=== PATIENT | male | born 1940 | race Caucasian/White ===

== ENCOUNTER 2019-11-10 12:50 | Emergency (ER) | payer MEDICARE, OTHER, SELFPAY ==
[2019-11-10 12:58] VITALS: BP 161/93; PULSE 93; RESP 18; TEMP 36.4; O2SAT 98
--- NOTE | 2019-11-10 12:58 | ED_ITS ---
HPI - Recheck/Abnormal Lab/Rx General Chief Complaint: Recheck/Abnormal Lab/Rx Stated Complaint: out of seizure medication/ran out today Time Seen by Provider: 11/10/19 12:57 Source: patient Mode of arrival: Ambulatory Limitations: no limitations History of Present Illness HPI narrative: Patient is a 78-year-old male with history of B12 deficiency and seizure presenting today with out of seizure medication. He supposed to take lamotrigine 150 mg twice a day however there are no refills on his medication and he only took 50 mg of Motrin this morning. He has only had 1 seizure secondary to B12 deficiency that was 6 months ago. He has no symptoms now and feels okay. MD complaint: medication refill request Related Data Previous Rx's Medication Instructions Recorded lamotrigine [Lamictal] 150 mg PO BID #30 tab 11/10/19 Allergies Allergy/AdvReac Type Severity Reaction Status Date / Time No Known Drug Allergies Allergy Verified 11/25/18 10:41 Review of Systems Review of Systems Narrative: GENERAL: Denies chills,fever HEENT: Denies throat pain RESPIRATORY: Denies dyspnea, cough, wheezing CARDIOVASCULAR: Denies chest pain, palpitations GASTROINTESTINAL: Denies nausea, vomiting MUSCULOSKELETAL: Denies extremity pain, injury SKIN: No rash, no laceration, no pruritus NEUROLOGIC: See HPI Denies weakness, dizziness, headache, numbness 8 point review of systems is negative except for those stated above and HPI Patient History Medical History B12 deficiency (Acute) Seizure (Acute) Social History Smoking Status: Never smoker Smoking Status: Never smoker Exam Initial Vital Signs Initial Vital Signs: Vital Signs Temperature 97.6 F 11/10/19 12:58 Pulse Rate 93 H 11/10/19 12:58 Respiratory Rate 18 11/10/19 12:58 Blood Pressure 161/93 H 11/10/19 12:58 Pulse Oximetry 98 11/10/19 12:58 GENERAL: Pleasant well-appearing male and in no acute distress. HEENT: Head atraumatic,EOMI, pupils reactive, face symmetric, moist mucous membranes CARDIOVASCULAR: Regular rate and rhythm without murmurs, rubs or gallops. RESPIRATORY: Breath sounds equal bilaterally, no wheezes rales or rhonchi. EXTREMITIES: Normal range of motion, no clubbing or edema. Neurovascularly int act NEUROLOGICAL: Alert and oriented x4.Normal gait and speech. SKIN: Warm, dry, no laceration, no petechiae, no rashes or lesions. Course Orders Ordered: Lamotrigine (Lamictal) 150 mg PO BID Stop: 11/10/19 23:59 Discontinued Medications Lamotrigine (Lamictal) 150 mg PO BID FLACO Last Admin: 11/10/19 13:27 Dose: 150 mg Documented by: HI Lamotrigine (Lamictal) 100 mg PO NOW ONE Stop: 11/10/19 13:09 Last Admin: 11/10/19 13:27 Dose: 100 mg Documented by: HI Vital Signs Vital signs: Vital Signs - 8 hr 11/10/19 12:58 Temperature 97.6 F Pulse Rate 93 H Respiratory Rate 18 Blood Pressure 161/93 H Pulse Oximetry 98 Discharge Plan Departure Patient Disposition: Home Clinical Impression: Seizure, Encounter for medication refill Discharge Date/Time: 11/10/19 13:39 Instructions: DI for Seizure Disorder -- Adult Activity Restrictions/Additional Instructions: *You have been diagnosed with seizure, medication refill *What to do: Talked your neurologist about refilling medication *Continue to take medications as directed lAMOTRIGINE 150 mg twice a day--> [facility] [place] *Follow up with your primary care provider in 2-3 days *Return to ER if you should have any new, worsening or concerning symptoms Prescriptions: New lamotrigine [Lamictal] 150 mg tablet 150 mg PO BID Qty: 30 RF: 0 Referrals: Luis Burris MD [Primary Care Provider] -
[2019-11-10] MEDS: lamoTRIgine 100 MG TABLET PO (13:27)
[2019-11-10] MEDS: lamoTRIgine 100 MG TABLET 150 MG PO (13:27)
== END 2019-11-10 13:39 | disposition home or self-care (01) ==
PROVIDERS: Emergency Provider Emergency Medicine; PCP Internal Medicine
DX: Z76.0 Encounter for issue of repeat prescription (principal)
CPT/HCPCS: 99281

== ENCOUNTER → 2019-12-07 15:45 | Outpatient (CLI) | payer MEDICARE, OTHER, SELFPAY ==
--- NOTE | 2019-12-07 | DI.RAD.S_ITS ---
PROCEDURE: XR KNEE LT 3V INDICATIONS: Pain in left knee TECHNIQUE: 3 views of the knee were acquired. COMPARISON: None. FINDINGS: Bones: No fractures or dislocations. No suspicious bony lesions. Areas of calcification are noted overlying the joint space on frontal view. Mild to moderate medial and mild patellofemoral compartment narrowing. Soft tissues: Mild joint effusion. Calcification is noted along the insertion of the medial collateral ligament. 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 Dictated by: Miryam Christy M.D. on 12/07/2019 at 16:34 Approved by: Miryam Christy M.D. on 12/07/2019 at 16:35
== END ==
PROVIDERS: PCP Internal Medicine; Visit Provider Internal Medicine
DX: M25.562 Pain in left knee (principal); M25.462 Effusion, left knee
CPT/HCPCS: 73562

== ENCOUNTER → 2021-03-30 19:08 | Outpatient (ROUT) | payer MEDICARE, OTHER, SELFPAY ==
[2021-03-30 19:55] LABS: Add Manual Diff / Slide Review NO; Basophils Absolute Auto 0 /uL (0-100); Basophils Percent Auto 0.4 % (0-2); Eosinophils Absolute Auto 100 /uL (0-450); Hematocrit 40.5 % (41-53); Hemoglobin 13.2 g/dL (13.5-17.5); Lymphocytes Absolute Auto 1600 /uL (1100-4500); Lymphocytes Percent Auto 20.5 % (25-40); Mean Corpuscular HGB Conc 32.7 % (30-36); Mean Corpuscular Hemoglobin 31.2 PG (26-34); Mean Corpuscular Volume 95.6 fL (80-100); Monocytes Absolute Auto 600 /uL (0-900); Monocytes Percent Auto 7.4 % (3-14); Neutrophils Absolute Auto 5400 /uL (1500-7000); Neutrophils Percent Auto 70.7 % (50-75); Platelet Count 90 X10^3/uL (150-400); Red Blood Cell Count 4.24 X10^6/uL (4.5-5.9); Red Cell Distribution Width 15.6 % (11.6-14.8); White Blood Cell Count 7.7 X10^3/uL (4.5-11.0)
[2021-03-30 20:08] LABS: Alanine Aminotransferase 13 IU/L (<50); Albumin Globulin Ratio 1.4 (1.0-2.8); Alkaline Phosphatase 106 U/L (38-126); Aspartate Aminotransferase 23 IU/L (17-59); BUN Creatinine Ratio 26.6 (6-22); Blood Urea Nitrogen 17 mg/dL (9-20); Calcium 8.9 mg/dL (8.4-10.2); Carbon Dioxide 27 mmol/L (22-32); Chloride 102 mmol/L (98-107); Estimated Glomerular Filt Rate > 60.0 mL/min (>60); Globulin 2.8 g/dL (1.7-4.1); Glucose 128 mg/dL (80-110); HEMOLYSIS < 15 (0-50); Sodium 141 mmol/L (137-145); Total Protein 6.8 g/dL (6.3-8.2)
[2021-03-30 20:09] LABS: Potassium 3.5 mmol/L (3.4-5.1)
[2021-03-30 20:34] LABS: TSH w/ Reflex to FT4 2.82 uIU/mL (0.47-4.68)
== END ==
PROVIDERS: PCP Internal Medicine; Visit Provider Internal Medicine
DX: I48.91 Unspecified atrial fibrillation (principal)
CPT/HCPCS: 80053; 84443; 85025

== ENCOUNTER → 2022-04-04 15:05 | Outpatient (CLI) | payer MEDICARE, OTHER, SELFPAY ==
[2022-04-04 17:40] LABS: Alanine Aminotransferase 10 IU/L (<50); Albumin 4.3 g/dL (3.5-5.0); Albumin Globulin Ratio 1.5 (1.0-2.8); Alkaline Phosphatase 89 U/L (38-126); Aspartate Aminotransferase 20 IU/L (17-59); BUN Creatinine Ratio 23.9 (6-22); Bilirubin Total 0.8 mg/dL (0.2-1.3); Blood Urea Nitrogen 16 mg/dL (9-20); Calcium 8.5 mg/dL (8.4-10.2); Carbon Dioxide 31 mmol/L (22-32); Chloride 103 mmol/L (98-107); Cholesterol 131 mg/dL (140-199); Estimated Glomerular Filt Rate > 60 mL/min (>60); Globulin 2.9 g/dL (1.7-4.1); Glucose 118 mg/dL (80-110); HDL Cholesterol 30 mg/dL (40-60); HEMOLYSIS < 15 (0-50); LDL Cholesterol Calculated 79 mg/dL (<100); Potassium 3.3 mmol/L (3.4-5.1); Sodium 140 mmol/L (137-145); Total Protein 7.2 g/dL (6.3-8.2); Triglycerides 108 mg/dL (35-150)
[2022-04-04 17:45] LABS: Hematocrit 37.8 % (41-53); Hemoglobin 12.9 g/dL (13.5-17.5); Mean Corpuscular HGB Conc 34.1 % (30-36); Mean Corpuscular Hemoglobin 33.6 PG (26-34); Mean Corpuscular Volume 98.5 fL (80-100); Platelet Count 117 X10^3/uL (150-400); Red Blood Cell Count 3.84 X10^6/uL (4.5-5.9); Red Cell Distribution Width 15.2 % (11.6-14.8); White Blood Cell Count 6.5 X10^3/uL (4.5-11.0)
[2022-04-04 18:08] LABS: Hemoglobin A1C% w Est Avg Glu 6.6 % (4.0-6.0)
[2022-04-04 18:26] LABS: TSH w/ Reflex to FT4 4.33 uIU/mL (0.47-4.68)
== END ==
PROVIDERS: PCP Internal Medicine; Referring Provider Internal Medicine; Visit Provider Internal Medicine
DX: I10 Essential (primary) hypertension (principal); E11.59 Type 2 diabetes mellitus with other circulatory complications; E78.2 Mixed hyperlipidemia; I48.20 Chronic atrial fibrillation, unspecified
CPT/HCPCS: 36415; 80053; 80061; 83036; 84443; 85027

== ENCOUNTER → 2022-07-18 16:37 | Outpatient (CLI) | payer MEDICARE, OTHER, SELFPAY ==
[2022-07-18 17:42] LABS: Hematocrit 39.9 % (41-53); Hemoglobin 13.9 g/dL (13.5-17.5); Mean Corpuscular HGB Conc 34.9 % (30-36); Mean Corpuscular Hemoglobin 34.2 PG (26-34); Platelet Count 134 X10^3/uL (150-400); Red Blood Cell Count 4.07 X10^6/uL (4.5-5.9); Red Cell Distribution Width 15.3 % (11.6-14.8)
[2022-07-18 18:01] LABS: Hemoglobin A1C% w Est Avg Glu 6.5 % (4.0-6.0)
[2022-07-18 18:03] LABS: Alanine Aminotransferase 11 IU/L (<50); Albumin 4.2 g/dL (3.5-5.0); Albumin Globulin Ratio 1.3 (1.0-2.8); Alkaline Phosphatase 100 U/L (38-126); Aspartate Aminotransferase 20 IU/L (17-59); BUN Creatinine Ratio 23.7 (6-22); Blood Urea Nitrogen 18 mg/dL (9-20); Calcium 8.9 mg/dL (8.4-10.2); Carbon Dioxide 27 mmol/L (22-32); Chloride 103 mmol/L (98-107); Estimated Glomerular Filt Rate > 60 mL/min (>60); Globulin 3.2 g/dL (1.7-4.1); Glucose 123 mg/dL (80-110); HEMOLYSIS < 15 (0-50); Potassium 3.9 mmol/L (3.4-5.1); Sodium 139 mmol/L (137-145); Total Protein 7.4 g/dL (6.3-8.2)
[2022-07-18 18:53] LABS: Vitamin B12 573 pg/mL (239-931)
[2022-07-20 08:08] LABS: Varicella IgG Antibody 665 index (Immune >165)
== END ==
PROVIDERS: PCP Internal Medicine; Referring Provider Internal Medicine; Visit Provider Internal Medicine
DX: Z20.9 Contact with and (suspected) exposure to unspecified communicable disease (principal); E53.8 Deficiency of other specified B group vitamins
CPT/HCPCS: 36415; 80053; 82607; 83036; 85027; 86787

== ENCOUNTER → 2022-10-23 14:29 | Outpatient (CLI) | payer MEDICARE, OTHER, SELFPAY ==
[2022-10-23 16:46] LABS: BUN Creatinine Ratio 17.6 (6-22); Blood Urea Nitrogen 12 mg/dL (9-20); Calcium 8.6 mg/dL (8.4-10.2); Carbon Dioxide 29 mmol/L (22-32); Chloride 99 mmol/L (98-107); Estimated Glomerular Filt Rate > 60 mL/min (>60); Glucose 117 mg/dL (80-110); HEMOLYSIS < 15 (0-50); Potassium 3.2 mmol/L (3.4-5.1); Sodium 140 mmol/L (137-145)
[2022-10-23 16:51] LABS: Hemoglobin A1C% w Est Avg Glu 6.4 % (4.0-6.0)
== END ==
PROVIDERS: PCP Internal Medicine; Referring Provider Internal Medicine; Visit Provider Internal Medicine
DX: E11.59 Type 2 diabetes mellitus with other circulatory complications (principal)
CPT/HCPCS: 36415; 80048; 83036

== ENCOUNTER → 2023-01-22 14:56 | Outpatient (CLI) | payer MEDICARE, OTHER, SELFPAY ==
[2023-01-22 15:10] LABS: Hematocrit 40.2 % (41-53); Hemoglobin 13.7 g/dL (13.5-17.5); Mean Corpuscular HGB Conc 34.2 % (30-36); Mean Corpuscular Hemoglobin 33.9 PG (26-34); Platelet Count 109 X10^3/uL (150-400); Red Blood Cell Count 4.06 X10^6/uL (4.5-5.9); Red Cell Distribution Width 14.9 % (11.6-14.8); White Blood Cell Count 6.1 X10^3/uL (4.5-11.0)
[2023-01-22 15:40] LABS: BUN Creatinine Ratio 22.7 (6-22); Blood Urea Nitrogen 17 mg/dL (9-20); Calcium 8.5 mg/dL (8.4-10.2); Carbon Dioxide 28 mmol/L (22-32); Chloride 104 mmol/L (98-107); Estimated Glomerular Filt Rate > 60 mL/min (>60); Glucose 122 mg/dL (80-110); HEMOLYSIS < 15 (0-50); Sodium 140 mmol/L (137-145)
[2023-01-22 22:59] LABS: Hemoglobin A1C% w Est Avg Glu 6.6 % (4.0-6.0)
== END ==
PROVIDERS: PCP Internal Medicine; Referring Provider Internal Medicine; Visit Provider Internal Medicine
DX: E11.59 Type 2 diabetes mellitus with other circulatory complications (principal); I48.20 Chronic atrial fibrillation, unspecified; I50.22 Chronic systolic (congestive) heart failure; Z79.01 Long term (current) use of anticoagulants
CPT/HCPCS: 36415; 80048; 83036; 85027

== ENCOUNTER → 2023-07-30 16:24 | Outpatient (CLI) | payer MEDICARE, OTHER, SELFPAY ==
[2023-07-30 20:59] LABS: Creatinine Urine Random 101.9 mg/dL
[2023-07-30 21:04] LABS: BUN Creatinine Ratio 25.7 (6-22); Blood Urea Nitrogen 18 mg/dL (9-20); Calcium 8.4 mg/dL (8.4-10.2); Carbon Dioxide 27 mmol/L (22-32); Chloride 101 mmol/L (98-107); Estimated Glomerular Filt Rate > 60 mL/min (>60); Glucose 111 mg/dL (80-110); HEMOLYSIS < 15 (0-50); Potassium 3.5 mmol/L (3.4-5.1); Sodium 139 mmol/L (137-145)
[2023-07-30 21:05] LABS: Microalbumi Creatinin Ratio Ur 111.8 ug/mg CR (<30); Microalbumin Urine Random 11.4 mg/dL (0-1.6)
== END ==
PROVIDERS: PCP Internal Medicine; Referring Provider Internal Medicine; Visit Provider Internal Medicine
DX: E11.59 Type 2 diabetes mellitus with other circulatory complications (principal); I48.20 Chronic atrial fibrillation, unspecified; I10 Essential (primary) hypertension
CPT/HCPCS: 36415; 80048; 82043; 82570; 83036

== ENCOUNTER 2023-11-05 10:20 | Inpatient (IN) | payer MEDICARE, OTHER, SELFPAY ==
[2023-11-05] VITALS (35 sets, daily range): BP systolic 98–139; BP diastolic 62–84; PULSE 58–121; RESP 20–35; TEMP 35.8–36.8; O2SAT 93–97; BMI 29.3; BMI 28.3
--- NOTE | 2023-11-05 10:26 | DI.RAD.S_ITS ---
PROCEDURE: XR CHEST 1V INDICATIONS: Shortness of breath TECHNIQUE: One view of the chest was acquired. COMPARISON: [facility], CT, CT CHEST WITHOUT CONTRAST, 07/16/2023, 11:42. [facility], CT, CT CHEST WITH CONTRAST, 02/21/2023, 10:48. FINDINGS: Surgical changes and devices: Sternotomy wires and mediastinal clips are seen. Lungs and pleura: There is a small right-sided pleural effusion. Mild atelectasis can be seen in both lung bases. Poorly defined opacity is again seen at the right lung apex, which is similar to the 07/16/2023 CT. Low lung volumes are noted. This causes a crowded appearance to the lung markings and limits evaluation. Mediastinum: Mediastinal contours appear normal. Heart size is normal. Bones and chest wall: No suspicious bony lesions. Age-appropriate bony degenerative changes are seen. Overlying soft tissues appear unremarkable. IMPRESSION: There is a small right-sided pleural effusion. There are low lung volumes. Stable opacity is seen at the right lung apex. Differential diagnosis includes neoplasm and benign lung consolidation. Postoperative and degenerative changes are seen. Dictated by: Kale Conrad M.D. on 11/05/2023 at 9:51 Approved by: Kale Conrad M.D. on 11/05/2023 at 9:54
--- NOTE | 2023-11-05 10:49 | ED_ITS ---
HPI - General Adult General Chief complaint: Shortness of Breath/Dyspnea Stated complaint: sent by PCP Time Seen by Provider: 11/05/23 10:24 Source: patient and family Mode of arrival: Wheelchair Limitations: no limitations History of Present Illness HPI narrative: Patient is an 82-year-old male. Has a history of what sounds like persistent AFib. Is on apixaban. Also has a history of congestive heart failure. Has a history of coronary artery disease. Had an initial heart attack in his late 30s. He was exposed to COVID approximately 3 days ago. He was sent to the emergency department by his primary doctor after a clinic visit today. There was concerns about his respiratory status and COVID status. Patient is not on home oxygen. He denies chest pain. Is short of breath that has started within the past day or so. Does have lower extremity swelling that has started within the past couple days as well. No cough. No fevers. No abdominal pain or nausea or vomiting. He has been taking all of his medications as directed. Related Data Home Medications Medication Instructions Recorded Confirmed amlodipine 5 mg tablet 5 mg PO DAILY 01/10/21 11/05/23 ramipril 10 mg capsule 10 mg PO DAILY 01/10/21 11/05/23 acetaminophen 325 mg capsule 325 mg PO ONCE PRN 01/24/22 11/05/23 (Tylenol) apixaban 5 mg tablet (Eliquis) 5 mg PO BID 01/24/22 11/05/23 ascorbate calcium (vitamin C) 500 500 mg PO BID 01/24/22 11/05/23 mg tablet furosemide 20 mg tablet (Lasix) 10 mg PO BID 01/24/22 11/05/23 isosorbide mononitrate 30 mg 30 mg PO DAILY 01/24/22 11/05/23 tablet,extended release 24 hr mecobalamin (vitamin B12) 1,000 1,000 mcg PO DAILY 01/24/22 11/05/23 mcg chewable tablet empagliflozin 10 mg tablet 10 mg PO DAILY 04/04/22 11/05/23 (Jardiance) potassium chloride 10 mEq 10 meq PO BID 01/22/23 11/05/23 tablet,extended release calcium carbonate 260 mg calcium 260 mg PO DAILY 11/05/23 11/05/23 (648 mg) tablet empagliflozin 10 mg tablet 10 mg PO DAILY 11/05/23 11/05/23 (Jardiance) magnesium oxide 500 mg tablet 500 mg PO DAILY 11/05/23 11/05/23 sacubitril 97 mg-valsartan 103 mg 1 tab PO BID 11/05/23 11/05/23 tablet (Entresto) Previous Rx's Medication Instructions Recorded spironolactone 25 mg tablet 25 mg PO DAILY #90 tabs 12/03/22 (Aldactone) atorvastatin 40 mg tablet (Lipitor) 40 mg PO DAILY #90 tabs 01/22/23 tamsulosin 0.4 mg capsule See Rx Instructions .Route 03/31/23 .COMPLEX #90 caps omeprazole 20 mg capsule,delayed 60 mg (3 x 20 mg) PO DAILY #270 04/16/23 release caps carvedilol 6.25 mg tablet 6.25 mg PO BID #180 tabs 06/02/23 methenamine hippurate 1 gram tablet See Rx Instructions .Route 08/13/23 .COMPLEX #60 tabs Allergies Allergy/AdvReac Type Severity Reaction Status Date / Time No Known Drug Allergies Allergy Verified 11/05/23 07:54 Review of Systems Review of Systems ROS Unobtainable: All systems reviewed & are unremarkable except as noted in HPI and below Patient History Medical History Tinea unguium Systolic CHF, chronic Do not resuscitate Mixed hyperlipidemia Essential hypertension Type 2 diabetes mellitus with cardiac complication Chronic anticoagulation Chronic atrial fibrillation Coronary artery disease Lung cancer History of UTI BPH w urinary obs/LUTS HTN (hypertension) Hypercholesteremia GERD (gastroesophageal reflux disease) Diverticular disease CAD (coronary artery disease) Chronic UTI BPH (benign prostatic hyperplasia) B12 deficiency Surgical History Hx of prostate biopsy H/O cystoscopy S/P CABG x 2 Social History Smoking Status: Former smoker Tobacco: How many years used: 20 alcohol intake: never caffeine: Yes Smoking Status: Former smoker Exam Initial Vital Signs Initial Vital Signs: Vital Signs Temperature 98.0 F 11/05/23 10:31 Pulse Rate 69 11/05/23 10:31 Respiratory Rate 30 H 11/05/23 10:31 Blood Pressure 120/70 11/05/23 10:31 Pulse Oximetry 94 11/05/23 10:31 Oxygen Delivery Method Room Air 11/05/23 10:31 Const Other: Appears chronically ill HENMT Head: normal to inspection and normocephalic Chest Other: Midline surgical scar consistent with his CABG history that appears well Resp Effort & Inspection: labored, respiratory distress, no retractions and tachypneic Auscultation: rales and rhonchi Cardio Rate: regular rate Rhythm: regular rhythm GI Inspection: normal to inspection and non-distended Palpation: soft Skin General: no rashes or lesions noted Neuro General: patient alert, patient awake and moves all extremities Speech: speech normal Extrem General: edema Course Orders Ordered: ED Orders 11/05/23 10:26 XR chest 1V Stat EKG-12 Lead Stat 11/05/23 10:31 Complete Blood Count AUTO DIFF Stat Comprehensive Metabolic Panel Stat Lactate (Lactic Acid) Stat Lipase Stat Magnesium Stat NT-proBNP (BNP-Adult 18+) Stat PTT Partial Thromboplastin Gerson Stat Phosphorous Stat Procalcitonin Stat Prothrombin Time INR Stat Respiratory Panel (Film Array) Stat Troponin & CK Cardiac Panel Stat 11/05/23 10:46 Blood Culture Stat 11/05/23 11:00 ABG [Arterial Blood Gas] Stat Magnesium Sulfate (Magnesium Sulfate) 2 gm in 50 mls @ 25 mls/hr IV NOW ONE Stop: 11/05/23 13:33 Last Admin: 11/05/23 11:37 Dose: 25 mls/hr Documented By: ASHISH Co-signed By: JANEY Discontinued Medications Furosemide 60 mg/ Sodium (Chloride) 56 mls @ 112 mls/hr IV NOW ONE Stop: 11/05/23 10:46 Last Infusion: 11/05/23 11:45 Dose: Infused Documented By: Admin: 11/05/23 11:15 Dose: 112 mls/hr Documented By: ASHISH Lidocaine HCl (Lidocaine 2% (Glydo) 6 Ml Gel) 6 ml TOP NOW ONE Stop: 11/05/23 11:08 Last Admin: 11/05/23 11:31 Dose: 6 ml Documented By: ASHISH Vital Signs Vital signs: Vital Signs - 8 hr 11/05/23 10:31 11/05/23 10:34 11/05/23 10:35 Temperature 98.0 F Pulse Rate 69 113 H 121 H Respiratory Rate 30 H 26 H Blood Pressure 120/70 Pulse Oximetry 94 94 94 Oxygen Delivery Method Room Air 11/05/23 10:40 11/05/23 10:45 11/05/23 10:45 Temperature Pulse Rate 93 H 71 Respiratory Rate 31 H Blood Pressure 128/77 Pulse Oximetry 95 95 Oxygen Delivery Method Room Air 11/05/23 10:50 11/05/23 10:50 11/05/23 10:55 Temperature Pulse Rate 67 Respiratory Rate 30 H Blood Pressure 134/65 117/64 Pulse Oximetry 97 Oxygen Delivery Method 11/05/23 10:55 11/05/23 11:00 11/05/23 11:00 Temperature Pulse Rate 65 69 Respiratory Rate 33 H 31 H Blood Pressure 117/75 Pulse Oximetry 97 96 Oxygen Delivery Method Room Air 11/05/23 11:05 11/05/23 11:05 11/05/23 11:10 Temperature Pulse Rate 69 Respiratory Rate 31 H Blood Pressure 117/70 123/67 Pulse Oximetry 96 Oxygen Delivery Method 11/05/23 11:10 11/05/23 11:15 11/05/23 11:15 Temperature Pulse Rate 80 70 Respiratory Rate 35 H 29 H Blood Pressure 128/74 Pulse Oximetry 95 96 Oxygen Delivery Method 11/05/23 11:20 11/05/23 11:20 11/05/23 11:25 Temperature 96.4 F L Pulse Rate 68 Respiratory Rate 26 H Blood Pressure 130/79 123/84 Pulse Oximetry 96 Oxygen Delivery Method 11/05/23 11:25 11/05/23 11:30 11/05/23 11:30 Temperature 97.7 F 98.1 F Pulse Rate 67 69 Respiratory Rate 24 33 H Blood Pressure 128/79 Pulse Oximetry 95 94 Oxygen Delivery Method 11/05/23 11:35 11/05/23 11:35 11/05/23 11:40 Temperature 98.2 F Pulse Rate 72 Respiratory Rate 30 H Blood Pressure 115/73 121/71 Pulse Oximetry 95 Oxygen Delivery Method 11/05/23 11:40 11/05/23 11:45 11/05/23 11:50 Temperature 98.2 F 98.2 F Pulse Rate 69 72 Respiratory Rate 27 H 25 H Blood Pressure 118/72 Pulse Oximetry 94 93 Oxygen Delivery Method 11/05/23 11:50 11/05/23 11:55 11/05/23 11:55 Temperature 98.2 F 98.2 F Pulse Rate 67 69 Respiratory Rate 31 H 25 H Blood Pressure 139/67 Pulse Oximetry 94 93 Oxygen Delivery Method 11/05/23 12:00 11/05/23 12:00 11/05/23 12:05 Temperature 98.2 F Pulse Rate 70 Respiratory Rate 26 H Blood Pressure 116/67 118/62 Pulse Oximetry 93 Oxygen Delivery Method 11/05/23 12:05 11/05/23 12:10 11/05/23 12:10 Temperature 98.2 F 98.2 F Pulse Rate 74 69 Respiratory Rate 27 H 29 H Blood Pressure 115/67 Pulse Oximetry 93 93 Oxygen Delivery Method 11/05/23 12:15 11/05/23 12:15 11/05/23 12:20 Temperature 98.2 F Pulse Rate 73 Respiratory Rate 30 H Blood Pressure 120/66 105/69 Pulse Oximetry 94 Oxygen Delivery Method 11/05/23 12:20 11/05/23 12:25 11/05/23 12:25 Temperature 98.2 F 98.2 F Pulse Rate 68 70 Respiratory Rate 25 H 26 H Blood Pressure 113/64 Pulse Oximetry 95 93 Oxygen Delivery Method 11/05/23 12:30 11/05/23 12:30 11/05/23 12:35 Temperature 98.2 F Pulse Rate 70 Respiratory Rate 30 H Blood Pressure 98/68 106/67 Pulse Oximetry 93 Oxygen Delivery Method 11/05/23 12:35 11/05/23 12:40 11/05/23 12:41 Temperature 98.2 F 98.2 F Pulse Rate 72 67 Respiratory Rate 27 H 25 H Blood Pressure 117/67 Pulse Oximetry 94 94 Oxygen Delivery Method 11/05/23 12:41 11/05/23 12:45 Temperature 98.2 F 98.2 F Pulse Rate 70 71 Respiratory Rate 27 H 31 H Blood Pressure Pulse Oximetry 95 93 Oxygen Delivery Method Medical Decision Making Medical Records Medical records reviewed: Yes I reviewed the patient's medical records. Lab Data Lab results reviewed: Yes I reviewed the patient's lab results. 11/05/23 10:31 11/05/23 10:31 Labs: Lab Results 11/05/23 11/05/23 Range/Units 10:31 11:00 WBC 7.4 (4.5-11.0) X10^3/uL RBC 3.99 L (4.5-5.9) X10^6/uL Hgb 13.9 (13.5-17.5) g/dL Hct 39.6 L (41-53) % MCV 99.3 (80-100) fL MCH 34.8 H (26-34) PG MCHC 35.1 (30-36) % RDW 15.3 H (11.6-14.8) % Plt Count 122 L (150-400) X10^3/uL Neut % (Auto) 82.0 H (50-75) % Lymph % (Auto) 9.8 L (25-40) % Mclean % (Auto) 7.5 (3-14) % Eos % (Auto) 0.2 L (2-4) % Baso % (Auto) 0.5 (0-2) % Neut # (Auto) 6100 (1611-4037) /uL Lymph # (Auto) 700 L (8777-3083) /uL Mclean # (Auto) 600 (0-900) /uL Eos # (Auto) 0 (0-450) /uL Baso # (Auto) 0 (0-100) /uL PT 27.8 H (9.4-12.5) SECONDS INR 2.4 H (0.9-1.3) APTT 37 H (25.1-36.5) SECONDS ABG Sample Site Left radial ABG pH 7.44 (7.35-7.45) ABG pCO2 30.6 L (35-45) mmHg ABG pO2 92 (80-100) mmHg ABG HCO3 21 L (23-27) mmol/L ABG Total CO2 22 L (23-27) mmol/L ABG O2 Saturation 98 (95-100) % ABG Base Excess -3.0 L (-2-3) mmol/L FiO2 21 Sodium 129 L (137-145) mmol/L Potassium 4.3 (3.4-5.1) mmol/L Chloride 93 L (98-107) mmol/L Carbon Dioxide 25 (22-32) mmol/L BUN 15 (9-20) mg/dL Creatinine 0.60 L (0.66-1.25) mg/dL Estimated GFR > 60 (>60) mL/min BUN/Creatinine Ratio 25.0 H (6-22) Glucose 113 H (80-110) mg/dL Lactate 1.8 (0.7-2.1) mmol/L Calcium 5.1 L* (8.4-10.2) mg/dL Phosphorus 4.7 H (2.3-3.7) mg/dL Magnesium 0.3 L* (1.6-2.3) mg/dL Total Bilirubin 1.2 (0.2-1.3) mg/dL AST 35 (17-59) IU/L ALT 21 (<50) IU/L Alkaline Phosphatase 81 (38-126) U/L Total Creatine Kinase 499 H (55-170) U/L Troponin I 0.012 (0.01-0.034) ng/mL NT-Pro-B Natriuret Pep 3570 H (<450) pg/mL Total Protein 6.4 (6.3-8.2) g/dL Albumin 3.4 L (3.5-5.0) g/dL Globulin 3.0 (1.7-4.1) g/dL Albumin/Globulin Ratio 1.1 (1.0-2.8) Lipase 77 (23-300) U/L Procalcitonin < 0.5 (<0.5) ng/mL Chlamy pneumoniae PCR Not detected (Not Detect) Adenovirus (PCR) Not detected (Not Detect) B.parapertussis DNA PCR Not detected (Not Detecte) Coronavirus OC43 (PCR) Not detected (Not Detect) Coronavirus HKU1 (PCR) Not detected (Not Detect) Coronavirus 229E (PCR) Not detected (Not Detect) SARS-CoV-2 (PCR) Detected H (Not Detecte) Coronavirus NL63 (PCR) Not detected (Not Detect) Human Metapneumovir PCR Not detected (Not Detect) Influenza Type A (PCR) Not detected (Not Detect) Influenza Type B (PCR) Not detected (Not Detect) M. pneumoniae (PCR) Not detected (Not Detect) Parainfluenza 1 (PCR) Not detected (Not Detect) Parainfluenza 2 (PCR) Not detected (Not Detect) Parainfluenza 3 (PCR) Not detected (Not Detect) Parainfluenza 4 (PCR) Not detected (Not Detect) RSV (PCR) Not detected (Not Detect) Entero/Rhino (PCR) Not detected (Not Detect) Imaging Data Chest x-ray: Radiologist's Impression: PROCEDURE: XR CHEST 1V INDICATIONS: Shortness of breath TECHNIQUE: One view of the chest was acquired. COMPARISON: [facility], CT, CT CHEST WITHOUT CONTRAST, 07/16/2023, 11:42. [facility], CT, CT CHEST WITH CONTRAST, 02/21/2023, 10:48. FINDINGS: Surgical changes and devices: Sternotomy wires and mediastinal clips are seen. Lungs and pleura: There is a small right-sided pleural effusion. Mild atelectasis can be seen in both lung bases. Poorly defined opacity is again seen at the right lung apex, which is similar to the 07/16/2023 CT. Low lung volumes are noted. This causes a crowded appearance to the lung markings and limits evaluation. Mediastinum: Mediastinal contours appear normal. Heart size is normal. Bones and chest wall: No suspicious bony lesions. Age-appropriate bony degenerative changes are seen. Overlying soft tissues appear unremarkable. IMPRESSION: There is a small right-sided pleural effusion. There are low lung volumes. Stable opacity is seen at the right lung apex. Differential diagnosis includes neoplasm and benign lung consolidation. Postoperative and degenerative changes are seen. ECG Data Attestation: I personally reviewed and interpreted this ECG as follows: Interpretation: Atrial fibrillation Ventricular rate of 63 Right bundle-branch block MDM Narrative Medical decision making narrative: Patient did have some significant respiratory distress with ambulation and also lying flat. Became hypoxic with these actions. When he was sitting in bed oxygen saturations were in the low 90s. Chest x-ray does not have overt pneumonia. He is COVID positive. Once again his magnesium is low. He is potassium is normal. Non ionized calcium is low. 2 g magnesium administered here in the ER. He does have lower extremity swelling. Not hypertensive. Was given Lasix. I suspect that his symptoms are related to his COVID positive status. He is in AFib. On blood thinners for this. Not tachycardic. Given his hypoxia and significant respiratory distress with ambulation he does require admission to the hospital. Discussed the case Dr. Horn hospitalist on-call will admit. Discussed the need for admission with the patient. He expressed understanding and agreement as well. Discharge Plan Departure Patient Disposition: Admitted As Inpatient Clinical Impression: COVID-19, Hypoxia, Hypomagnesemia Admit Date/Time: 11/05/23 12:49 Admit Provider: Jl Horn
[2023-11-05 10:53] LABS: Add Manual Diff / Slide Review NO; Basophils Absolute Auto 0 /uL (0-100); Basophils Percent Auto 0.5 % (0-2); Eosinophils Absolute Auto 0 /uL (0-450); Eosinophils Percent Auto 0.2 % (2-4); Hematocrit 39.6 % (41-53); Hemoglobin 13.9 g/dL (13.5-17.5); Lymphocytes Absolute Auto 700 /uL (1100-4500); Lymphocytes Percent Auto 9.8 % (25-40); Mean Corpuscular HGB Conc 35.1 % (30-36); Mean Corpuscular Hemoglobin 34.8 PG (26-34); Mean Corpuscular Volume 99.3 fL (80-100); Monocytes Absolute Auto 600 /uL (0-900); Monocytes Percent Auto 7.5 % (3-14); Neutrophils Absolute Auto 6100 /uL (1500-7000); Platelet Count 122 X10^3/uL (150-400); Red Blood Cell Count 3.99 X10^6/uL (4.5-5.9); Red Cell Distribution Width 15.3 % (11.6-14.8); White Blood Cell Count 7.4 X10^3/uL (4.5-11.0)
[2023-11-05 11:01] LABS: INR 2.4 (0.9-1.3); Prothrombin Time 27.8 SECONDS (9.4-12.5)
[2023-11-05 11:03] LABS: PTT Partial Thromboplastin Tim 37 SECONDS (25.1-36.5)
[2023-11-05 11:12] LABS: PCO2 ABG 30.6 mmHg (35-45); pH ABG 7.44 (7.35-7.45)
[2023-11-05 11:13] LABS: Allen Test for ABG Passed? Yes, Passed; Blood Gas Collection Site Left Radial; Fractionated Inspired Oxygen 21; HCO3 ABG 21 mmol/L (23-27); Oxygen Saturation ABG 98 % (95-100); PO2 ABG 92 mmHg (80-100); TCO2 ABG 22 mmol/L (23-27)
[2023-11-05 11:15] LABS: Lactate (Lactic Acid) 1.8 mmol/L (0.7-2.1)
[2023-11-05] MEDS: FUROSEMIDE 60 MG in SODIUM CHLORIDE 0.9% 50 ML 112 MG IV (11:15)
[2023-11-05 11:17] LABS: Alanine Aminotransferase 21 IU/L (<50); Albumin 3.4 g/dL (3.5-5.0); Albumin Globulin Ratio 1.1 (1.0-2.8); Alkaline Phosphatase 81 U/L (38-126); Aspartate Aminotransferase 35 IU/L (17-59); Bilirubin Total 1.2 mg/dL (0.2-1.3); Blood Urea Nitrogen 15 mg/dL (9-20); Carbon Dioxide 25 mmol/L (22-32); Chloride 93 mmol/L (98-107); Creatine Kinase 499 U/L (55-170); Estimated Glomerular Filt Rate > 60 mL/min (>60); Glucose 113 mg/dL (80-110); HEMOLYSIS 16 (0-50); Lipase 77 U/L (23-300); Phosphorous 4.7 mg/dL (2.3-3.7); Potassium 4.3 mmol/L (3.4-5.1); Sodium 129 mmol/L (137-145); Total Protein 6.4 g/dL (6.3-8.2)
[2023-11-05 11:28] LABS: NT-proBNP (BNP-Adult 18+) 3570 pg/mL (<450); Troponin I 0.012 ng/mL (0.01-0.034)
[2023-11-05] MEDS: LIDOCAINE 2% (GLYDO) 6 ML GEL TOP (11:31)
[2023-11-05 11:33] LABS: Calcium 5.1 mg/dL (8.4-10.2); Magnesium 0.3 mg/dL (1.6-2.3)
[2023-11-05 11:35] LABS: Procalcitonin < 0.5 ng/mL (<0.5)
[2023-11-05] MEDS: MAGNESIUM SULFATE 2 GM/50 ML PIGGYBACK IV ×2 (11:37→18:18)
[2023-11-05 11:46] LABS: Adenovirus Not Detected (Not Detect); B. parapertussis Not Detected (Not Detecte); Bordetella pertussis Not Detected (Not Detect); Chlamydophila pneumoniae Not Detected (Not Detect); Coronavirus 229E Not Detected (Not Detect); Coronavirus HKU1 Not Detected (Not Detect); Coronavirus NL 63 Not Detected (Not Detect); Coronavirus OC43 Not Detected (Not Detect); Human Metapneumovirus Not Detected (Not Detect); Human Rhinovirus/Enterovirus Not Detected (Not Detect); Influenza A Not Detected (Not Detect); Influenza B Not Detected (Not Detect); Mycoplasma pneumoniae Not Detected (Not Detect); Parainfluenza Virus 1 Not Detected (Not Detect); Parainfluenza Virus 2 Not Detected (Not Detect); Parainfluenza Virus 3 Not Detected (Not Detect); Parainfluenza Virus 4 Not Detected (Not Detect); Respiratory Syncytial Virus Not Detected (Not Detect); SARS- CoV-2 Detected (Not Detecte)
--- NOTE | 2023-11-05 12:05 | PC.NURSE ---
Pt attempted to sit on side of bed, 02 sat dropped to 86% and RR increased to 38 with significant work of breathing. Returned to resting position. Dr. Mars nelson.
[2023-11-05] MEDS: CALCIUM GLUCONATE 4.65 MEQ in SODIUM CHLORIDE 0.9% 50 ML 180 MEQ IV (14:39)
--- NOTE | 2023-11-05 16:38 | P.HP_ITS ---
History of Present Illness History of Present Illness Date Patient Seen: 11/05/23 Time Patient Seen: 15:00 Chief complaint: sent by PCP Narrative: Mr. Pa is an 82M with PMH CHFrEF, hx lung cancer in remission, DM, afib, CAD, BPH who presents to the hospital with cough and shortness of breath. He notes a few days ago he went to another hospital ED due to feeling weak. He was noted to have low calcium and magnesium levels. He was given supplementation of this and discharged from the ED. He notes he has continued to take his diuretic and despite this has noted over the last week increasing lower extremity edema. He notes he has had a few days of diarrhea. He was exposed to COVID a few days ago from a family member and then developed cough and shortness of breath. He went to see his PCP who recommended evaluation in the ED. In the ED, workup was done, vitals notable for afebrile, heart rate in 60s, respiratory in 30s, blood pressure 120s/70s, sats 94% on room air. Per ED physician patient desat to 80s with ambulation. Labs reviewed by me and notable for WBC 7.4, hgb 13.9, plts 122. Na 129, BUN 0.60. Lactate 1.8. Calcium 5.1, magnesium 0.3. BNP 3570. Trop 0.012. COVID positive. Chest xray with small right sided pleural effusion, stable opacity in the right lung apex, both findings have been noted before after patient had radiation to lung. He was ordered for magnesium and lasix and admitted for further treatment. [facility] Medical History Tinea unguium Systolic CHF, chronic Do not resuscitate Mixed hyperlipidemia Essential hypertension Type 2 diabetes mellitus with cardiac complication Chronic anticoagulation Chronic atrial fibrillation Coronary artery disease Lung cancer History of UTI BPH w urinary obs/LUTS HTN (hypertension) Hypercholesteremia GERD (gastroesophageal reflux disease) Diverticular disease CAD (coronary artery disease) Chronic UTI BPH (benign prostatic hyperplasia) B12 deficiency Surgical History Hx of prostate biopsy H/O cystoscopy S/P CABG x 2 Social History Smoking Status: Former smoker Tobacco: How many years used: 20 alcohol intake: never caffeine: Yes Meds Home Medications and Allergies Home Medications Medication Instructions Recorded Confirmed Type amlodipine 5 mg tablet 5 mg PO DAILY 01/10/21 11/05/23 History ramipril 10 mg capsule 10 mg PO DAILY 01/10/21 11/05/23 History acetaminophen 325 mg capsule 325 mg PO ONCE PRN Pain (Scale 01/24/22 11/05/23 History (Tylenol) Score 1-3) apixaban 5 mg tablet (Eliquis) 5 mg PO BID 01/24/22 11/05/23 History ascorbate calcium (vitamin C) 500 500 mg PO BID 01/24/22 11/05/23 History mg tablet furosemide 20 mg tablet (Lasix) 10 mg PO BID 01/24/22 11/05/23 History isosorbide mononitrate 30 mg 30 mg PO DAILY 01/24/22 11/05/23 History tablet,extended release 24 hr mecobalamin (vitamin B12) 1,000 1,000 mcg PO DAILY 01/24/22 11/05/23 History mcg chewable tablet empagliflozin 10 mg tablet 10 mg PO DAILY 04/04/22 11/05/23 History (Jardiance) spironolactone 25 mg tablet 25 mg PO DAILY #90 tabs 12/03/22 11/05/23 Rx (Aldactone) atorvastatin 40 mg tablet (Lipitor) 40 mg PO DAILY #90 tabs 01/22/23 11/05/23 Rx potassium chloride 10 mEq 10 meq PO BID 01/22/23 11/05/23 History tablet,extended release tamsulosin 0.4 mg capsule See Rx Instructions .Route 03/31/23 11/05/23 Rx .COMPLEX #90 caps omeprazole 20 mg capsule,delayed 60 mg (3 x 20 mg) PO DAILY #270 04/16/23 11/05/23 Rx release caps carvedilol 6.25 mg tablet 6.25 mg PO BID #180 tabs 06/02/23 11/05/23 Rx methenamine hippurate 1 gram tablet See Rx Instructions .Route 08/13/23 11/05/23 Rx .COMPLEX #60 tabs calcium carbonate 260 mg calcium 260 mg PO DAILY 11/05/23 11/05/23 History (648 mg) tablet empagliflozin 10 mg tablet 10 mg PO DAILY 11/05/23 11/05/23 History (Jardiance) magnesium oxide 500 mg tablet 500 mg PO DAILY 11/05/23 11/05/23 History sacubitril 97 mg-valsartan 103 mg 1 tab PO BID 11/05/23 11/05/23 History tablet (Entresto) Allergies Allergy/AdvReac Type Severity Reaction Status Date / Time No Known Drug Allergies Allergy Verified 11/05/23 07:54 Review of Systems Review of Systems Narrative: 14 systems reviewed and negative aside from what is noted in HPI Exam Vital Signs (past 8 hours): - 11/05/23 10:31 11/05/23 10:34 11/05/23 10:35 Temperature 98.0 F Pulse Rate 69 113 H 121 H Respiratory Rate 30 H 26 H Blood Pressure 120/70 Pulse Oximetry 94 94 94 Oxygen Delivery Method Room Air 11/05/23 10:40 11/05/23 10:45 11/05/23 10:45 Temperature Pulse Rate 93 H 71 Respiratory Rate 31 H Blood Pressure 128/77 Pulse Oximetry 95 95 Oxygen Delivery Method Room Air 11/05/23 10:50 11/05/23 10:50 11/05/23 10:55 Temperature Pulse Rate 67 Respiratory Rate 30 H Blood Pressure 134/65 117/64 Pulse Oximetry 97 Oxygen Delivery Method 11/05/23 10:55 11/05/23 11:00 11/05/23 11:00 Temperature Pulse Rate 65 69 Respiratory Rate 33 H 31 H Blood Pressure 117/75 Pulse Oximetry 97 96 Oxygen Delivery Method Room Air 11/05/23 11:05 11/05/23 11:05 11/05/23 11:10 Temperature Pulse Rate 69 Respiratory Rate 31 H Blood Pressure 117/70 123/67 Pulse Oximetry 96 Oxygen Delivery Method 11/05/23 11:10 11/05/23 11:15 11/05/23 11:15 Temperature Pulse Rate 80 70 Respiratory Rate 35 H 29 H Blood Pressure 128/74 Pulse Oximetry 95 96 Oxygen Delivery Method 11/05/23 11:20 11/05/23 11:20 11/05/23 11:25 Temperature 96.4 F L Pulse Rate 68 Respiratory Rate 26 H Blood Pressure 130/79 123/84 Pulse Oximetry 96 Oxygen Delivery Method 11/05/23 11:25 11/05/23 11:30 11/05/23 11:30 Temperature 97.7 F 98.1 F Pulse Rate 67 69 Respiratory Rate 24 33 H Blood Pressure 128/79 Pulse Oximetry 95 94 Oxygen Delivery Method 11/05/23 11:35 11/05/23 11:35 11/05/23 11:40 Temperature 98.2 F Pulse Rate 72 Respiratory Rate 30 H Blood Pressure 115/73 121/71 Pulse Oximetry 95 Oxygen Delivery Method 11/05/23 11:40 11/05/23 11:45 11/05/23 11:50 Temperature 98.2 F 98.2 F Pulse Rate 69 72 Respiratory Rate 27 H 25 H Blood Pressure 118/72 Pulse Oximetry 94 93 Oxygen Delivery Method 11/05/23 11:50 11/05/23 11:55 11/05/23 11:55 Temperature 98.2 F 98.2 F Pulse Rate 67 69 Respiratory Rate 31 H 25 H Blood Pressure 139/67 Pulse Oximetry 94 93 Oxygen Delivery Method 11/05/23 12:00 11/05/23 12:00 11/05/23 12:05 Temperature 98.2 F Pulse Rate 70 Respiratory Rate 26 H Blood Pressure 116/67 118/62 Pulse Oximetry 93 Oxygen Delivery Method 11/05/23 12:05 11/05/23 12:10 11/05/23 12:10 Temperature 98.2 F 98.2 F Pulse Rate 74 69 Respiratory Rate 27 H 29 H Blood Pressure 115/67 Pulse Oximetry 93 93 Oxygen Delivery Method 11/05/23 12:15 11/05/23 12:15 11/05/23 12:20 Temperature 98.2 F Pulse Rate 73 Respiratory Rate 30 H Blood Pressure 120/66 105/69 Pulse Oximetry 94 Oxygen Delivery Method 11/05/23 12:20 11/05/23 12:25 11/05/23 12:25 Temperature 98.2 F 98.2 F Pulse Rate 68 70 Respiratory Rate 25 H 26 H Blood Pressure 113/64 Pulse Oximetry 95 93 Oxygen Delivery Method 11/05/23 12:30 11/05/23 12:30 11/05/23 12:35 Temperature 98.2 F Pulse Rate 70 Respiratory Rate 30 H Blood Pressure 98/68 106/67 Pulse Oximetry 93 Oxygen Delivery Method 11/05/23 12:35 11/05/23 12:40 11/05/23 12:41 Temperature 98.2 F 98.2 F Pulse Rate 72 67 Respiratory Rate 27 H 25 H Blood Pressure 117/67 Pulse Oximetry 94 94 Oxygen Delivery Method 11/05/23 12:41 11/05/23 12:45 11/05/23 12:50 Temperature 98.2 F 98.2 F 98.2 F Pulse Rate 70 71 74 Respiratory Rate 27 H 31 H 33 H Blood Pressure Pulse Oximetry 95 93 93 Oxygen Delivery Method Room Air Oxygen Delivery Method Room Air Narrative Exam Narrative: GEN: weak, in respiratory distress CV: irregular, no murmurs PULM: wet cough, coarse breath sounds, increased work of breathing, not speaking full sentences ABD: soft, nontender EXT: 2+ pitting edema bilaterally NEURO: awake, alert, no focal deficits noted Objective Labs 11/05/23 10:31 11/05/23 10:31 Labs: Laboratory Results - last 24 hr 11/05/23 11/05/23 10:31 11:00 WBC 7.4 RBC 3.99 L Hgb 13.9 Hct 39.6 L MCV 99.3 MCH 34.8 H MCHC 35.1 RDW 15.3 H Plt Count 122 L Neut % (Auto) 82.0 H Lymph % (Auto) 9.8 L [place] % (Auto) 7.5 Eos % (Auto) 0.2 L Baso % (Auto) 0.5 Neut # (Auto) 6100 Lymph # (Auto) 700 L [place] # (Auto) 600 Eos # (Auto) 0 Baso # (Auto) 0 PT 27.8 H INR 2.4 H APTT 37 H ABG Sample Site Left radial ABG pH 7.44 ABG pCO2 30.6 L ABG pO2 92 ABG HCO3 21 L ABG Total CO2 22 L ABG O2 Saturation 98 ABG Base Excess -3.0 L FiO2 21 Sodium 129 L Potassium 4.3 Chloride 93 L Carbon Dioxide 25 BUN 15 Creatinine 0.60 L Estimated GFR > 60 BUN/Creatinine Ratio 25.0 H Glucose 113 H Lactate 1.8 Calcium 5.1 L* Phosphorus 4.7 H Magnesium 0.3 L* Total Bilirubin 1.2 AST 35 ALT 21 Alkaline Phosphatase 81 Total Creatine Kinase 499 H Troponin I 0.012 NT-Pro-B Natriuret Pep 3570 H Total Protein 6.4 Albumin 3.4 L Globulin 3.0 Albumin/Globulin Ratio 1.1 Lipase 77 Procalcitonin < 0.5 Chlamy pneumoniae PCR Not detected Adenovirus (PCR) Not detected B.parapertussis DNA PCR Not detected Coronavirus OC43 (PCR) Not detected Coronavirus HKU1 (PCR) Not detected Coronavirus 229E (PCR) Not detected SARS-CoV-2 (PCR) Detected H Coronavirus NL63 (PCR) Not detected Human Metapneumovir PCR Not detected Influenza Type A (PCR) Not detected Influenza Type B (PCR) Not detected M. pneumoniae (PCR) Not detected Parainfluenza 1 (PCR) Not detected Parainfluenza 2 (PCR) Not detected Parainfluenza 3 (PCR) Not detected Parainfluenza 4 (PCR) Not detected RSV (PCR) Not detected Entero/Rhino (PCR) Not detected Assessment & Plan Assessment & Plan narrative: 1. Acute respiratory distress -secondary to COVID infection and acute on chronic CHFrEF exacerbation -COVID positive on PCR, not requiring oxygen now so steroids/remdesivir not indicated -patient did get IV lasix in ED, diuresing well -plan to continue IV lasix, but given severe electrolyte abnormalities will attempt replacement before giving additional lasix -check ECHO due to acute chf exacerbation 2. Hypocalcemia, hypomagnesemia -suspect low magnesium caused low calcium -suspect low magnesium is caused by continued diuretics and now diarrhea and poor oral intake during recent illness -ordered for mag and calcium repletion -recheck lytes -if continues to have significant abnormalities despite repletion may need parathyroid workup 3. Hisory of lung cancer -no evidence of recurrence per last oncology note -has noted chronic findins of rul abnormality and right pleural effusion that have been previously thought secondary to chf and/or radiation -if patient not improving from respiratory standpoint will order CT of chest 4. Atrial fibrillation -continue coreg, eliquis 5. BPH -continue tamsulosin 6. CAD -continue imdur 7. Type 2 DM -hold home meds -ordered insulin sliding scale CODE: DNR PRoxy: Gilbertocalista Covarrubias, niece I have discussed plan and obtained history from patient. I have discussed plan of care with ED physician and bedside nurse. I have reviewed labs, imaging, medical notes. Quality VTE Deep Vein Thrombosis/Pulmonary Embolism Present on Admission: No
--- NOTE | 2023-11-05 16:49 | DI.ECHO.S_ITS ---
[place] [facility]---------+ [facility] +---------+ : : [address] : : : : [id number] : : : : Phone: [phone]+ Echocardiogram Report + + :Name: DWAIN ZAMORA Study Date: 11/06/2023 Height: 70 in : :[facility] ReadingLocation: Weight: 197 lb : : Gender: Male BSA: 2.1 m2 : :: 1940 Age: 82 yrs BP: 121/69 mmHg: :Reason For Study: CONGESTIVE HEART FAILURE : :Ordering Physician: WILDER, : :ABBEY Performed By: Pina Wall : :Referring: ABBEY ASHLEY : + + Interpretation Summary 1) Mildly to moderately enlarged left ventricle with severely reduced systolic function (EF 20-25%). 2) Moderately to severely enlarged right ventricle with moderately reduced function. 3) Moderately biatrial enlargement. 4) There is mild to moderate mitral regurgitation. 5) There is moderate tricuspid regurgitation. 6) The right ventricular systolic pressure is estimated to be at least 37 mmHg based on an estimated right atrial pressure of 8 mm Hg. 7) No prior Echo available for comparison. Procedure: A two-dimensional transthoracic echocardiogram with color flow and Doppler was performed. The study quality was technically adequate. There is no prior echocardiogram noted for this patient. The patient was in atrial fibrillation with heart rates between 60-97 bpm during the exam. Left Ventricle: The left ventricle is mild-moderately dilated. The estimated left ventricular end diastolic volume is 150 ml. There is normal left ventricular wall thickness. The ejection fraction is estimated to be 20-25%. There is severe global hypokinesis of the left ventricle. There is a severe dyssynchronous contraction pattern, consistent with a conduction abnormality. Diastolic function could not be accurately assessed due to atrial fibrillation. Right Ventricle: The right ventricle is moderate to severely dilated. Right ventricular systolic function is moderately reduced. Atria: The left atrium is moderately dilated. The right atrium is moderately dilated. Mitral Valve: The mitral valve leaflets appear mildly thickened, but open well. The mitral valve chordae are thickened and/or calcified. There is mild to moderate mitral regurgitation. Aortic Valve: The aortic valve is mildly calcified. There is mild aortic valve sclerosis. There is no aortic valve stenosis. There is mild aortic regurgitation. Tricuspid Valve: The tricuspid annulus is dilated. There is moderate tricuspid regurgitation. The right ventricular systolic pressure is estimated to be at least 37 mmHg based on an estimated right atrial pressure of 8 mm Hg. Pulmonic Valve: Pulmonic valve leaflets appear thin and pliable. There is moderate to severe pulmonic regurgitation. Great Vessels: The aortic root is borderline dilated. The dimensions of the ascending aorta are normal. The IVC is dilated (diameter is greater than 2.1 cm) yet it collapses greater than 50% with a sniff. This suggests a right atrial pressure of 8 mm Hg. Pericardium/ Pleura There is no pericardial effusion. There is no pleural effusion. MMode/2D Measurements & Calculations LVIDd: 6.3 cm LVOT diam: 2.0 cm LVIDs: 5.4 cm Ao root diam: 4.0 cm FS: 15.5 % asc Aorta Diam: 3.3 cm EPSS: 1.8 cm Ao Arch Diam (Prox Trans): 3.3 cm IVSd: 1.0 cm LVPWd: 0.76 cm LV bellamy. diameter/BSA (cm/m^2): 3.1 LV sys. diameter/BSA (cm/m^2): 2.6 LA A2 area: 23.9 cm2 RA long axis: 6.6 cm LA A4 area: 31.6 cm2 RA area: 28.1 cm2 LA length (vol): 6.7 cm RA vol: 102.8 ml LA vol: 95.3 ml RA : 49.5 ml/m2 LA vol index: 45.9 ml/m2 IVC diam: 2.5 cm RVD1 (basal): 5.5 cm RVD2 (mid): 4.8 cm TAPSE: 1.2 cm Doppler Measurements & Calculations Ao V2 max: 127.0 cm/sec LVOT Max Matty: 63.3 cm/sec Ao V2 mean: 86.0 cm/sec LV V1 max P.6 mmHg Ao max P.5 mmHg LV V1 VTI: 11.4 cm Ao mean P.3 mmHg VIJAY(I,D): 1.4 cm2 Ao V2 VTI: 26.1 cm VIJAY(V,D): 1.6 cm2 sev ratio: 0.44 VIJAY indexed to BSA (cm^2/m^2): 0.69 MV E max matty: 105.9 cm/sec TR max matty: 267.5 cm/sec MV A max matty: 1.3 cm/sec TR max P.6 mmHg MV E/A: 81.7 PA V2 max: 98.8 cm/sec Med Peak E' Matty: 5.4 cm/sec PA V2 mean: 70.5 cm/sec E/E' med: 19.5 PA mean P.2 mmHg Lat Peak E' Matty: 6.1 cm/sec PA pr(Accel): 43.0 mmHg E/E' lat: 17.3 E/e' average: 18.4 MV dec time: 0.22 sec SV(LVOT): 37.1 ml Reading Physician:04:16 PM
[2023-11-05 17:24] LABS: BUN Creatinine Ratio 28.1 (6-22); Blood Urea Nitrogen 16 mg/dL (9-20); Carbon Dioxide 29 mmol/L (22-32); Chloride 91 mmol/L (98-107); Estimated Glomerular Filt Rate > 60 mL/min (>60); Glucose 120 mg/dL (80-110); HEMOLYSIS 16 (0-50); Potassium 3.8 mmol/L (3.4-5.1); Sodium 129 mmol/L (137-145)
[2023-11-05 18:09] LABS: Calcium 5.4 mg/dL (8.4-10.2); Magnesium 0.7 mg/dL (1.6-2.3)
[2023-11-05] MEDS: carvediloL 3.125 MG TABLET 6.25 MG PO (21:10)
[2023-11-05] MEDS: APIXABAN 5 MG TABLET PO (21:10)
[2023-11-05] MEDS: SODIUM CHLORIDE 0.9% FLUSH 10 ML IV (22:55)
[2023-11-06] VITALS (10 sets, daily range): BP systolic 108–139; BP diastolic 62–88; PULSE 60–70; RESP 18–22; TEMP 35.7–36.6; O2SAT 91–100
--- NOTE | 2023-11-06 00:38 | PC.NURSE ---
Breanne ADDRESSOGRAPH OPERATOR. called reported had 3 runs of V-tach. Checked patient, states I'm okay, I'm talking to my . Will monitor.
[2023-11-06 05:04] LABS: Add Manual Diff / Slide Review NO; Basophils Absolute Auto 0 /uL (0-100); Basophils Percent Auto 0.2 % (0-2); Eosinophils Absolute Auto 0 /uL (0-450); Eosinophils Percent Auto 0.2 % (2-4); Hematocrit 38.4 % (41-53); Hemoglobin 13.1 g/dL (13.5-17.5); Lymphocytes Absolute Auto 500 /uL (1100-4500); Lymphocytes Percent Auto 7.4 % (25-40); Mean Corpuscular HGB Conc 34.2 % (30-36); Mean Corpuscular Hemoglobin 33.9 PG (26-34); Mean Corpuscular Volume 98.9 fL (80-100); Monocytes Absolute Auto 400 /uL (0-900); Monocytes Percent Auto 5.8 % (3-14); Neutrophils Absolute Auto 6100 /uL (1500-7000); Neutrophils Percent Auto 86.4 % (50-75); Platelet Count 123 X10^3/uL (150-400); Red Blood Cell Count 3.88 X10^6/uL (4.5-5.9); Red Cell Distribution Width 15.5 % (11.6-14.8)
[2023-11-06 05:12] LABS: BUN Creatinine Ratio 25.5 (6-22); Blood Urea Nitrogen 14 mg/dL (9-20); Carbon Dioxide 26 mmol/L (22-32); Chloride 91 mmol/L (98-107); Estimated Glomerular Filt Rate > 60 mL/min (>60); Glucose 95 mg/dL (80-110); HEMOLYSIS 15 (0-50); Potassium 3.7 mmol/L (3.4-5.1); Sodium 127 mmol/L (137-145)
[2023-11-06 05:25] LABS: Calcium 5.3 mg/dL (8.4-10.2)
[2023-11-06 05:26] LABS: Magnesium 0.9 mg/dL (1.6-2.3)
[2023-11-06] MEDS: MAGNESIUM SULFATE 2 GM/50 ML PIGGYBACK IV ×2 (06:26→08:25)
[2023-11-06] MEDS: ISOSORBIDE MONONITRATE ER 30 MG TABLET PO (06:27)
[2023-11-06] MEDS: SODIUM CHLORIDE 0.9% FLUSH 10 ML IV ×2 (08:25→20:38)
[2023-11-06] MEDS: carvediloL 3.125 MG TABLET 6.25 MG PO ×2 (08:25→20:33)
[2023-11-06] MEDS: APIXABAN 5 MG TABLET PO ×2 (08:25→20:33)
[2023-11-06] MEDS: TAMSULOSIN 0.4 MG CAPSULE PO (08:25)
[2023-11-06] MEDS: PANTOPRAZOLE DR 40 MG TABLET PO (08:50)
--- NOTE | 2023-11-06 09:23 | P.PN_ITS ---
Subjective Subjective Interval history: Patient still on room air at rest. Having wet mucusy cough. Duonebs and mucomyst ordered. Echo returned with EF 20-25%. Exam Vital Signs (past 8 hours): - 11/06/23 02:10 11/06/23 06:00 11/06/23 07:00 Temperature 96.3 F L 96.7 F L Pulse Rate 68 70 Respiratory Rate 22 20 Blood Pressure 121/69 127/71 Pulse Oximetry 95 98 Oxygen Delivery Method Room Air Oxygen Flow Rate 0 0 11/06/23 07:45 11/06/23 08:25 Temperature 96.4 F L Pulse Rate 66 66 Respiratory Rate 18 Blood Pressure 108/62 108/62 Pulse Oximetry 91 Oxygen Delivery Method Oxygen Flow Rate Oxygen Delivery Method Room Air Oxygen Flow Rate 0 Narrative Exam Narrative: GEN: weak, fatigued, wet cough CV: irregular, no murmurs PULM: wet cough, coarse breath sounds, increased work of breathing, not speaking full sentences ABD: soft, nontender EXT: 2+ pitting edema bilaterally NEURO: awake, alert, no focal deficits noted Objective Labs 11/06/23 04:11 11/06/23 15:17 Labs: Laboratory Results - last 24 hr 11/05/23 11/05/23 11/05/23 10:31 11:00 17:00 WBC 7.4 RBC 3.99 L Hgb 13.9 Hct 39.6 L MCV 99.3 MCH 34.8 H MCHC 35.1 RDW 15.3 H Plt Count 122 L Neut % (Auto) 82.0 H Lymph % (Auto) 9.8 L [place] % (Auto) 7.5 Eos % (Auto) 0.2 L Baso % (Auto) 0.5 Neut # (Auto) 6100 Lymph # (Auto) 700 L [place] # (Auto) 600 Eos # (Auto) 0 Baso # (Auto) 0 PT 27.8 H INR 2.4 H APTT 37 H ABG Sample Site Left radial ABG pH 7.44 ABG pCO2 30.6 L ABG pO2 92 ABG HCO3 21 L ABG Total CO2 22 L ABG O2 Saturation 98 ABG Base Excess -3.0 L FiO2 21 Sodium 129 L 129 L Potassium 4.3 3.8 Chloride 93 L 91 L Carbon Dioxide 25 29 BUN 15 16 Creatinine 0.60 L 0.57 L Estimated GFR > 60 > 60 BUN/Creatinine Ratio 25.0 H 28.1 H Glucose 113 H 120 H Lactate 1.8 Calcium 5.1 L* 5.4 L* Phosphorus 4.7 H Magnesium 0.3 L* 0.7 L* Total Bilirubin 1.2 AST 35 ALT 21 Alkaline Phosphatase 81 Total Creatine Kinase 499 H Troponin I 0.012 NT-Pro-B Natriuret Pep 3570 H Total Protein 6.4 Albumin 3.4 L Globulin 3.0 Albumin/Globulin Ratio 1.1 Lipase 77 Procalcitonin < 0.5 Chlamy pneumoniae PCR Not detected Adenovirus (PCR) Not detected B.parapertussis DNA PCR Not detected Coronavirus OC43 (PCR) Not detected Coronavirus HKU1 (PCR) Not detected Coronavirus 229E (PCR) Not detected SARS-CoV-2 (PCR) Detected H Coronavirus NL63 (PCR) Not detected Human Metapneumovir PCR Not detected Influenza Type A (PCR) Not detected Influenza Type B (PCR) Not detected M. pneumoniae (PCR) Not detected Parainfluenza 1 (PCR) Not detected Parainfluenza 2 (PCR) Not detected Parainfluenza 3 (PCR) Not detected Parainfluenza 4 (PCR) Not detected RSV (PCR) Not detected Entero/Rhino (PCR) Not detected 11/06/23 04:11 WBC 7.0 RBC 3.88 L Hgb 13.1 L Hct 38.4 L MCV 98.9 MCH 33.9 MCHC 34.2 RDW 15.5 H Plt Count 123 L Neut % (Auto) 86.4 H Lymph % (Auto) 7.4 L [place] % (Auto) 5.8 Eos % (Auto) 0.2 L Baso % (Auto) 0.2 Neut # (Auto) 6100 Lymph # (Auto) 500 L [place] # (Auto) 400 Eos # (Auto) 0 Baso # (Auto) 0 PT INR APTT ABG Sample Site ABG pH ABG pCO2 ABG pO2 ABG HCO3 ABG Total CO2 ABG O2 Saturation ABG Base Excess FiO2 Sodium 127 L Potassium 3.7 Chloride 91 L Carbon Dioxide 26 BUN 14 Creatinine 0.55 L Estimated GFR > 60 BUN/Creatinine Ratio 25.5 H Glucose 95 Lactate Calcium 5.3 L* Phosphorus Magnesium 0.9 L* Total Bilirubin AST ALT Alkaline Phosphatase Total Creatine Kinase Troponin I NT-Pro-B Natriuret Pep Total Protein Albumin Globulin Albumin/Globulin Ratio Lipase Procalcitonin Chlamy pneumoniae PCR Adenovirus (PCR) B.parapertussis DNA PCR Coronavirus OC43 (PCR) Coronavirus HKU1 (PCR) Coronavirus 229E (PCR) SARS-CoV-2 (PCR) Coronavirus NL63 (PCR) Human Metapneumovir PCR Influenza Type A (PCR) Influenza Type B (PCR) M. pneumoniae (PCR) Parainfluenza 1 (PCR) Parainfluenza 2 (PCR) Parainfluenza 3 (PCR) Parainfluenza 4 (PCR) RSV (PCR) Entero/Rhino (PCR) PFSH Medical History Tinea unguium Systolic CHF, chronic Do not resuscitate Mixed hyperlipidemia Essential hypertension Type 2 diabetes mellitus with cardiac complication Chronic anticoagulation Chronic atrial fibrillation Coronary artery disease Lung cancer History of UTI BPH w urinary obs/LUTS HTN (hypertension) Hypercholesteremia GERD (gastroesophageal reflux disease) Diverticular disease CAD (coronary artery disease) Chronic UTI BPH (benign prostatic hyperplasia) B12 deficiency Surgical History Hx of prostate biopsy H/O cystoscopy S/P CABG x 2 Social History household members: spouse Smoking Status: Former smoker Tobacco: How many years used: 20 alcohol intake: never caffeine: Yes Assessment & Plan Assessment & Plan narrative: 1. Acute respiratory distress, secondary to COVID infection and acute on chronic CHFrEF exacerbation -COVID positive on PCR, not requiring oxygen now so steroids/remdesivir not indicated -patient did get IV lasix in ED, diuresing well -plan to continue IV lasix, but given severe electrolyte abnormalities will attempt replacement before giving additional lasix -echo with EF 20-25%, no prior for comparison -continue home entresto, coreg, IV lasix -duonebs, mucomyst PRN 2. Hypocalcemia, hypomagnesemia, hyponatremia -suspect low magnesium caused low calcium -suspect low magnesium is caused by continued diuretics and now diarrhea and poor oral intake during recent illness -ordered for mag and calcium repletion -monitor lytes -if continues to have significant abnormalities despite repletion may need parathyroid workup -Na down to 127, continue lasix 3. History of lung cancer -no evidence of recurrence per last oncology note -has noted chronic findings of rul abnormality and right pleural effusion that have been previously thought secondary to chf and/or radiation -if patient not improving from respiratory standpoint will order CT of chest 4. Atrial fibrillation -continue coreg, eliquis 5. BPH -continue tamsulosin 6. CAD -continue imdur 7. Type 2 DM -hold home meds -ordered insulin sliding scale CODE: DNR PRoxy: jose m Khoury Dispo: PT cleared for home with HH. Pending improvement in electrolytes and CHF/COVID. Quality VTE Deep Vein Thrombosis/Pulmonary Embolism Present on Admission: No
[2023-11-06] MEDS: CALCIUM GLUCONATE 9.3 MEQ in SODIUM CHLORIDE 0.9% 50 ML 140 MEQ IV ×2 (10:36→18:28)
--- NOTE | 2023-11-06 12:38 | PT.IIE ---
Current Diagnoses COVID-19 (11/05/23) Surgical History (Last Reviewed 11/05/23 @ 16:38 by Jl Horn MD) H/O cystoscopy Hx of prostate biopsy S/P CABG x 2 Medical History (Last Reviewed 11/05/23 @ 16:38 by Jl Horn MD) B12 deficiency BPH (benign prostatic hyperplasia) BPH w urinary obs/LUTS CAD (coronary artery disease) Chronic anticoagulation Chronic atrial fibrillation Chronic UTI Coronary artery disease Diverticular disease Do not resuscitate Essential hypertension GERD (gastroesophageal reflux disease) History of UTI HTN (hypertension) Hypercholesteremia Lung cancer Mixed hyperlipidemia Systolic CHF, chronic Tinea unguium Type 2 diabetes mellitus with cardiac complication Physical Therapy Inpatient Evaluation/Re-Eval M1 PT/OT-IP Prior Functional Status Start: 11/06/23 11:59 Freq: NEEDED Status: Active Protocol: Document 11/06/23 12:07 AMB (Rec: 11/06/23 12:36 AMB [id number]) Medical Review Prior Functional Status Communication WFL Mobility and Gait Was ambulating without AD and driving in the community Prior Functional Level (Other details) 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 0 Home Environment Standard Height Toilet Home Equipment Front Wheel Walker,Four Wheel Walker Employment Status Retired Additional Social History Comment pt states he was walkers and a power chair, although these are likely his 's M2 PT-IP Current Condition Start: 11/06/23 11:59 Freq: NEEDED Status: Active Protocol: Document 11/06/23 12:07 AMB (Rec: 11/06/23 12:36 AMB [id number]) Physical Therapy Current Condition Current Condition Evaluation Date 11/06/23 Treatment Diagnosis weakness;Covid Onset Date 11/05/23 M3 PT-IP Subjective Start: 11/06/23 11:59 Freq: NEEDED Status: Active Protocol: Document 11/06/23 12:07 AMB (Rec: 11/06/23 12:36 AMB [id number]) Subjective Physical Therapy Visit Type Type Initial Evaluation Visit Start Time 11:15 Visit Stop Time 11:45 Total Visit Minutes 30 Physical Therapy Visit Comments Patient Comments Pt willing to get up and walk Therapy Pain Assessment Pain When Pain Assessed At Rest Pain Present Pain Present Denied Pain M4 PT-IP Mobility and Gait Start: 11/06/23 11:59 Freq: NEEDED Status: Active Protocol: Document 11/06/23 12:07 AMB (Rec: 11/06/23 12:36 AMB [id number]) PT-Bed Mobility Assessment Rolling Type of Rolling Log Rolling,Roll to Left Level of Assist Contact Guard Assistance Supine to Sit Supine to Sit Contact Guard Assistance PT-Transfer Assessment Sit to and From Stand Sit to and from Stand Contact Guard Assistance Equipment Transfer Assistive Device Bed Rail,Gait Belt,Front Wheeled Walker Transfers Transfer Destination Bed,Chair Transfer Technique Stand Step Pivot Transfer Ability Level of Assist Contact Guard Assistance Comments Mobility Comments Darren struggled slightly to move from sidelying to sitting . He needed both UEs and had to push quite hard on the bed railing to sit up but was able to do so without physical assistance. He then used both UEs to push from sit to stand . When moving from standing to sitting he had poor eccentric control and plopped down to the bed. Gait Assessment Gait Gait Assistance Required: Contact Guard Assist Distance (Feet) 50 Assistive Devices Assistive Device Gait Belt,Front Wheeled Walker Gait Deviations General Gait Pattern Decreased Stride Length Factors Limiting Gait Function Factors Limiting Gait Function Decreased Activity Tolerance, Decreased Strength,Poor Balance Comments Gait Comments Darren had a few misteps when walking with the walker, mostly when turning or backing up but was able to recover his balance independently. Pt 's SpO2 at 96% at rest and dropped to 91% on room air with activity. Pt balanced standing at bedside to change brief while holding onto FWW. PT-Balance Assessment Sitting Balance and Reactions Static Sitting Balance Ability Good Standing Balance and Reactions Static Standing Balance Ability Fair Dynamic Standing Balance Ability Fair M5 PT-IP Objective Assessments Start: 11/06/23 11:59 Freq: NEEDED Status: Active Protocol: Document 11/06/23 12:07 AMB (Rec: 11/06/23 12:36 AMB [id number]) Orientation Orientation/Cognition Level of Alertness Alert M6 PT-IP Treatment Start: 11/06/23 11:59 Freq: NEEDED Status: Active Protocol: Document 11/06/23 12:07 AMB (Rec: 11/06/23 12:36 AMB [id number]) Physical Therapy Treatment Exercises Exercises Ankle Pumps M7 PT-IP Assessment and Plan Start: 11/06/23 11:59 Freq: NEEDED Status: Active Protocol: Document 11/06/23 12:07 AMB (Rec: 11/06/23 12:36 AMB [id number]) PT Summary Assessment and Plan Potential Rehabilitation Potential Good Status of Condition at Evaluation Stable Summary Impairments Strength,Balance,Bed Mobility, Transfers,Gait,Activity Tolerance Assessment Summary Darren was independent in the community until recently developing Covid. While he was able to perform bed mobility and transfers without physical assistance he struggled, and did have a 2-3 misteps while walking in his room with a walker. He was aware that he is not as strong now as his baseline. PT encouraged him to consider using a FWW when he discharges home. He is having his neice stay in his home currently, and would encourage her to stay with him when he d/cs home for safety. He could also consider home health to help improve his overall strength and balance if that continues to be below his previous level of function. Goals Bed Mobility Goal Standby Assistance Transfer Goal Standby Assistance Gait Goal Contact Guard Assistance,Front Wheel Walker Gait Distance 150 Days to Meet Goals 5 Frequency of Treatment Frequency Of Treatment Once a Day Treatment Plan Physical Therapy Treatment Plan Bed Mobility Training,Transfer Training,Gait Training, Therapeutic Exercise,Balance Retraining Recommendations To Nursing Amount of Assist Needed 1 Person Assist Discharge Recommendations PT Discharge Recommendations Home with Assistance,Home Health Transportation Needs at Discharge Private Vehicle
--- NOTE | 2023-11-06 13:46 | OT.IPNOTE ---
Attempted OT eval, pt adamant that he will be fine for his OT needs and already has all equipment needs at home. Pt's niece present and states will be staying with him upon discharge. Hospitalist informed.
--- NOTE | 2023-11-06 15:47 | CM.DANOTE ---
Initial DCP Assessment Note Reviewed EMR and team rounds for pt's medical status. Did not meet with pt due to Covid+ status and his shortness of breath at this time. Pt is , resides in [place] in his own home, nephew is emergency contact. Payor: Medicare PCP: Dr. Burris Pt is a 82 year-old M with a hx of CHF, hx lung cancer in remission, DM, afib, CAD, and BPH who presented with worsening cough, weakness, and SOB. Pt chest x-ray showed small right-sided pleural effusion, and was noted to be low on calcium and magnesium. He was admitted for further eval and tx. DCP will follow and assist with any evolving d/c needs/resources. Discharge Planning/Care Management CM Discharge Assessment Start: 11/06/23 15:38 Freq: Status: Active Protocol: Document 11/06/23 15:38 DPL (Rec: 11/06/23 15:47 DPL [id number]) Discharge Planning Assessment Assigned Volunteer Services Director SOLEDAD Hernadez Advance Directives? Yes Advance Directives on File No History Provided By Medical Record Has Patient been admitted in last 30 No days? Comment Pt did present to another ED this week for same symptoms, went home, then presented here with worsening SOB/cough. Prior Living Arrangements House Household Members spouse Type of transporation used prior to Drives own vehicle admit Independent with ADL's Yes Is patient alert and oriented? Yes Caregiver for Another No DME Already Rented / Owned FWW / Walker Comment Pending PT/OT eval and recommendations once he's medically improved. Barriers to Discharge Yes Comment Covid+ status Discharge Plan Home Transportation Arrangement Need to clarify w/family Additional Comment Pending. Whiteboard Updated in Patient Room with No name and ext. # of Volunteer Services Director Review Status In Process Please Provide Date Initial DC 11/06/23 Assessment Was Performed
[2023-11-06 15:52] LABS: BUN Creatinine Ratio 28.8 (6-22); Blood Urea Nitrogen 15 mg/dL (9-20); Carbon Dioxide 28 mmol/L (22-32); Chloride 92 mmol/L (98-107); Estimated Glomerular Filt Rate > 60 mL/min (>60); Glucose 162 mg/dL (80-110); HEMOLYSIS < 15 (0-50); Magnesium 1.8 mg/dL (1.6-2.3); Potassium 3.8 mmol/L (3.4-5.1); Sodium 126 mmol/L (137-145)
[2023-11-06 15:57] LABS: Calcium 5.8 mg/dL (8.4-10.2)
[2023-11-06] MEDS: INSULIN LISPRO 100 UNIT/ML 3ML VIAL SUBCUT (17:21)
[2023-11-06] MEDS: FUROSEMIDE 40 MG/4 ML VIAL IV (17:21)
[2023-11-06] MEDS: POTASSIUM CHLORIDE 10 MEQ TAB PO (20:33)
[2023-11-06] MEDS: ALBUTEROL/IPRATROPIUM 3 ML AMPUL INH (21:26)
[2023-11-07] VITALS (9 sets, daily range): BP systolic 97–134; BP diastolic 50–72; PULSE 62–69; RESP 16–21; TEMP 35.8–36.2; O2SAT 91–94
[2023-11-07] MEDS: LIDOCAINE 2% (GLYDO) 6 ML GEL TOP (06:19)
[2023-11-07] MEDS: PANTOPRAZOLE DR 40 MG TABLET PO (06:20)
[2023-11-07] MEDS: ISOSORBIDE MONONITRATE ER 30 MG TABLET PO (06:20)
[2023-11-07 06:25] LABS: Add Manual Diff / Slide Review NO; Basophils Absolute Auto 0 /uL (0-100); Basophils Percent Auto 0.1 % (0-2); Eosinophils Absolute Auto 0 /uL (0-450); Eosinophils Percent Auto 0.5 % (2-4); Hematocrit 38.3 % (41-53); Hemoglobin 13.1 g/dL (13.5-17.5); Lymphocytes Absolute Auto 400 /uL (1100-4500); Lymphocytes Percent Auto 8.2 % (25-40); Mean Corpuscular HGB Conc 34.2 % (30-36); Mean Corpuscular Hemoglobin 33.7 PG (26-34); Mean Corpuscular Volume 98.6 fL (80-100); Monocytes Absolute Auto 300 /uL (0-900); Monocytes Percent Auto 6.3 % (3-14); Neutrophils Absolute Auto 4300 /uL (1500-7000); Neutrophils Percent Auto 84.9 % (50-75); Platelet Count 117 X10^3/uL (150-400); Red Blood Cell Count 3.89 X10^6/uL (4.5-5.9); Red Cell Distribution Width 15.1 % (11.6-14.8)
--- NOTE | 2023-11-07 06:34 | PC.NURSE ---
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 RN inspected Vargas and notified night time Hospitalist, Dr Adams approved of a larger diameter vargas and topical lidocaine for patients comfort for insertion. Upon further inspection RN noted ballon possibly not filled to full amount, RN added 3.5mL to balloon cuff of Vargas cath, no urine noted leaking. patient in fresh linen, along with additional chux pad and wrapped scrotum with large hand towel to absorb any possible urine to help identify if cath still leaking.
[2023-11-07 06:37] LABS: BUN Creatinine Ratio 25.5 (6-22); Blood Urea Nitrogen 13 mg/dL (9-20); Carbon Dioxide 28 mmol/L (22-32); Chloride 93 mmol/L (98-107); Estimated Glomerular Filt Rate > 60 mL/min (>60); Glucose 102 mg/dL (80-110); HEMOLYSIS < 15 (0-50); Magnesium 1.7 mg/dL (1.6-2.3); Potassium 3.6 mmol/L (3.4-5.1); Sodium 128 mmol/L (137-145)
[2023-11-07] MEDS: CALCIUM GLUCONATE 9.3 MEQ in SODIUM CHLORIDE 0.9% 50 ML 140 MEQ IV (08:33)
[2023-11-07] MEDS: TAMSULOSIN 0.4 MG CAPSULE PO (08:34)
[2023-11-07] MEDS: FUROSEMIDE 40 MG/4 ML VIAL IV ×2 (08:34→17:33)
[2023-11-07] MEDS: APIXABAN 5 MG TABLET PO ×2 (08:34→20:44)
[2023-11-07] MEDS: SODIUM CHLORIDE 0.9% FLUSH 10 ML IV ×2 (08:35→20:46)
[2023-11-07] MEDS: SPIRONOLACTONE 25 MG TABLET PO (08:35)
[2023-11-07] MEDS: POTASSIUM CHLORIDE 10 MEQ TAB PO ×2 (08:35→20:45)
[2023-11-07] MEDS: carvediloL 3.125 MG TABLET 6.25 MG PO (08:36)
[2023-11-07] MEDS: MAGNESIUM SULFATE 2 GM/50 ML PIGGYBACK IV (09:25)
--- NOTE | 2023-11-07 11:40 | P.PN_ITS ---
Subjective Subjective Interval history: Patient much less congested today and feeling better. LE swelling improved but still present. He has no real complaints. Exam Vital Signs (past 8 hours): - 11/07/23 06:05 11/07/23 07:00 11/07/23 08:36 Temperature 96.4 F L Pulse Rate 65 68 Respiratory Rate 21 Blood Pressure 103/62 134/71 Pulse Oximetry 93 Oxygen Delivery Method Room Air Oxygen Flow Rate 0 11/07/23 08:45 Temperature 96.9 F L Pulse Rate 69 Respiratory Rate 18 Blood Pressure 134/71 Pulse Oximetry 94 Oxygen Delivery Method Oxygen Flow Rate 0 Oxygen Delivery Method Room Air Oxygen Flow Rate 0 Narrative Exam Narrative: GEN: NAD, appears less ill today CV: irregular, no murmurs PULM: improved rhonchi on left, otherwise clear on right ABD: soft, nontender EXT: 2+ pitting edema bilaterally has improved NEURO: awake, alert, no focal deficits noted Objective Labs 11/07/23 05:25 11/07/23 05:25 Labs: Laboratory Results - last 24 hr 11/06/23 11/07/23 15:17 05:25 WBC 5.0 RBC 3.89 L Hgb 13.1 L Hct 38.3 L MCV 98.6 MCH 33.7 MCHC 34.2 RDW 15.1 H Plt Count 117 L Neut % (Auto) 84.9 H Lymph % (Auto) 8.2 L [place] % (Auto) 6.3 Eos % (Auto) 0.5 L Baso % (Auto) 0.1 Neut # (Auto) 4300 Lymph # (Auto) 400 L [place] # (Auto) 300 Eos # (Auto) 0 Baso # (Auto) 0 Sodium 126 L 128 L Potassium 3.8 3.6 Chloride 92 L 93 L Carbon Dioxide 28 28 BUN 15 13 Creatinine 0.52 L 0.51 L Estimated GFR > 60 > 60 BUN/Creatinine Ratio 28.8 H 25.5 H Glucose 162 H 102 Calcium 5.8 L* 6.0 L* Magnesium 1.8 1.7 PFSH Medical History Tinea unguium Systolic CHF, chronic Do not resuscitate Mixed hyperlipidemia Essential hypertension Type 2 diabetes mellitus with cardiac complication Chronic anticoagulation Chronic atrial fibrillation Coronary artery disease Lung cancer History of UTI BPH w urinary obs/LUTS HTN (hypertension) Hypercholesteremia GERD (gastroesophageal reflux disease) Diverticular disease CAD (coronary artery disease) Chronic UTI BPH (benign prostatic hyperplasia) B12 deficiency Surgical History Hx of prostate biopsy H/O cystoscopy S/P CABG x 2 Social History household members: spouse Smoking Status: Former smoker Tobacco: How many years used: 20 alcohol intake: never caffeine: Yes Assessment & Plan Assessment & Plan narrative: 1. Acute respiratory distress, secondary to COVID infection and acute on chronic CHFrEF exacerbation, improving -COVID positive on PCR, not requiring oxygen now so steroids/remdesivir not indicated -patient did get IV lasix in ED, diuresing well -plan to continue IV lasix, but given severe electrolyte abnormalities will attempt replacement before giving additional lasix -echo with EF 20-25%, no prior for comparison but patient states his last EF was 30% -continue home entresto, coreg, IV lasix 40mg BID -duonebs, mucomyst PRN 2. Hypocalcemia, hypomagnesemia, hyponatremia, improving -suspect low magnesium caused low calcium -suspect low magnesium is caused by continued diuretics and now diarrhea and poor oral intake during recent illness -ordered for mag and calcium repletion -monitor lytes -if continues to have significant abnormalities despite repletion may need parathyroid workup -Na up to 128, continue lasix 3. History of lung cancer -no evidence of recurrence per last oncology note -has noted chronic findings of rul abnormality and right pleural effusion that have been previously thought secondary to chf and/or radiation -if patient not improving from respiratory standpoint will order CT of chest 4. Atrial fibrillation -continue coreg, eliquis 5. BPH -continue tamsulosin 6. CAD -continue imdur 7. Type 2 DM -hold home meds -ordered insulin sliding scale CODE: DNR PRoxy: jose m Khoury Dispo: PT cleared for home with HH. Likely on 11/08. Quality VTE Deep Vein Thrombosis/Pulmonary Embolism Present on Admission: No
--- NOTE | 2023-11-07 13:03 | PT.IPTN ---
Current Diagnoses COVID-19 (11/05/23) Physical Therapy Treatment Note M2 PT-IP Current Condition Start: 11/06/23 11:59 Freq: NEEDED Status: Active Protocol: Document 11/06/23 12:07 AMB (Rec: 11/06/23 12:36 AMB [id number]) Physical Therapy Current Condition Current Condition Evaluation Date 11/06/23 Treatment Diagnosis weakness;Covid Onset Date 11/05/23 M3 PT-IP Subjective Start: 11/06/23 11:59 Freq: NEEDED Status: Active Protocol: Document 11/07/23 13:34 TS (Rec: 11/07/23 13:44 TS [id number]) Subjective Physical Therapy Visit Type Type Treatment Note Visit Start Time 13:03 Visit Stop Time 13:30 Total Visit Minutes 27 Notes Niece present Physical Therapy Visit Comments Patient Comments Pt willing to get up and walk M4 PT-IP Mobility and Gait Start: 11/06/23 11:59 Freq: NEEDED Status: Active Protocol: Document 11/07/23 13:34 TS (Rec: 11/07/23 13:44 TS [id number]) PT-Bed Mobility Assessment Supine to Sit Supine to Sit Standby Assistance,Head of Bed Elevated Scooting Scooting to Edge of Bed Standby Assistance PT-Transfer Assessment Sit to and From Stand Sit to and from Stand Standby Assistance Equipment Transfer Assistive Device Gait Belt,Front Wheeled Walker Comments Mobility Comments BP in supine 104/52, Spo2 93% on RA. Supine to sit SBA with HOB elevated and use of BUE support to sit EOB. Sit to stand SBA with FWW and BUE support to come into standing, demonstrates fair standing balance. He ambulated in room ~100' SBA/CGA with FWW, pt is unsteady with gait, especially with turns of FWW. Pt sat EOB , Spo2 86% on RA, after ~10 secs increased to 90%. He ambulated again in room and sat back into chair. Pt was left in chair, all needs met, chair alarm on, niece in room. Gait Assessment Gait Gait Assistance Required: Standby Assistance,Contact Guard Assist Distance (Feet) 100 Assistive Devices Assistive Device Gait Belt,Front Wheeled Walker Gait Deviations General Gait Pattern Decreased Stride Length Factors Limiting Gait Function Factors Limiting Gait Function Decreased Activity Tolerance, Decreased Strength,Poor Balance Comments Gait Comments See mobility comments PT-Balance Assessment Sitting Balance and Reactions Static Sitting Balance Ability Good Dynamic Sitting Balance Ability Fair Standing Balance and Reactions Static Standing Balance Ability Fair Dynamic Standing Balance Ability Fair M5 PT-IP Objective Assessments Start: 11/06/23 11:59 Freq: NEEDED Status: Active Protocol: Document 11/06/23 12:07 AMB (Rec: 11/06/23 12:36 AMB [id number]) Orientation Orientation/Cognition Level of Alertness Alert M6 PT-IP Treatment Start: 11/06/23 11:59 Freq: NEEDED Status: Active Protocol: Document 11/06/23 12:07 AMB (Rec: 11/06/23 12:36 AMB [id number]) Physical Therapy Treatment Exercises Exercises Ankle Pumps M7 PT-IP Assessment and Plan Start: 11/06/23 11:59 Freq: NEEDED Status: Active Protocol: Document 11/07/23 13:34 TS (Rec: 11/07/23 13:44 TS [id number]) PT Summary Assessment and Plan Potential Rehabilitation Potential Good Summary Impairments Strength,Balance,Bed Mobility, Transfers,Gait,Activity Tolerance Progress Towards Goals Progressing Toward Goals Assessment Summary Darren is making some progress with his mobility. He progressed his gait to ~100' SBA/CGA, pt is unsteady with gait, especially with turning in FWW. PT continued to encourage pt to use FWW while at home. PT is recommending pt return home with assist and HHPT. Goals Bed Mobility Goal Standby Assistance Transfer Goal Standby Assistance Gait Goal Contact Guard Assistance,Front Wheel Walker Gait Distance 150 Days to Meet Goals 5 Frequency of Treatment Frequency Of Treatment Once a Day Treatment Plan Physical Therapy Treatment Plan Bed Mobility Training,Transfer Training,Gait Training, Therapeutic Exercise,Balance Retraining Recommendations To Nursing Amount of Assist Needed 1 Person Assist Discharge Recommendations PT Discharge Recommendations Home with Assistance,Home Health Transportation Needs at Discharge Private Vehicle
--- NOTE | 2023-11-07 15:14 | CM.DPNOTE ---
DCP Note JOURNEYMAN PRESS OPERATOR reviewed EMR. Per provider PN, dc home tomorrow with HH. JOURNEYMAN PRESS OPERATOR spoke with pt over the phone due to current COVID diagnosis. Pt agreeable to home tomorrow with niece support. Niece in the room with pt, and verbally reported she's going to stay with pt for a few days after dc and can drive him home. Pt agreeable to [facility]. JOURNEYMAN PRESS OPERATOR placed order for HH. TC Nicolas kindly agreed to fax initial clinical referral. JOURNEYMAN PRESS OPERATOR spoke with Yoselin with intake at [facility]. Agreed to review. Earliest start of care at this time is the or . JOURNEYMAN PRESS OPERATOR completed face to face Plan: home tomorrow with [facility] pending acceptance. Niece to transport home and support at home. CM team will continue to follow closely. SOLEDAD [place]
[2023-11-07] MEDS: ALBUTEROL/IPRATROPIUM 3 ML AMPUL INH (22:18)
[2023-11-08] VITALS (8 sets, daily range): BP systolic 104–136; BP diastolic 58–74; PULSE 53–67; RESP 18–22; TEMP 36–36.5; O2SAT 93–95
[2023-11-08 06:13] LABS: Add Manual Diff / Slide Review NO; Basophils Absolute Auto 0 /uL (0-100); Basophils Percent Auto 0.4 % (0-2); Eosinophils Absolute Auto 0 /uL (0-450); Eosinophils Percent Auto 0.3 % (2-4); Hematocrit 37.3 % (41-53); Hemoglobin 12.7 g/dL (13.5-17.5); Lymphocytes Absolute Auto 600 /uL (1100-4500); Lymphocytes Percent Auto 10.7 % (25-40); Mean Corpuscular HGB Conc 34.2 % (30-36); Mean Corpuscular Hemoglobin 33.6 PG (26-34); Mean Corpuscular Volume 98.2 fL (80-100); Monocytes Absolute Auto 400 /uL (0-900); Monocytes Percent Auto 6.8 % (3-14); Neutrophils Absolute Auto 4500 /uL (1500-7000); Neutrophils Percent Auto 81.8 % (50-75); Platelet Count 127 X10^3/uL (150-400); Red Blood Cell Count 3.79 X10^6/uL (4.5-5.9); Red Cell Distribution Width 15.3 % (11.6-14.8); White Blood Cell Count 5.5 X10^3/uL (4.5-11.0)
[2023-11-08] MEDS: PANTOPRAZOLE DR 40 MG TABLET PO (06:22)
[2023-11-08] MEDS: ISOSORBIDE MONONITRATE ER 30 MG TABLET PO (06:22)
[2023-11-08 06:23] LABS: BUN Creatinine Ratio 31.9 (6-22); Blood Urea Nitrogen 15 mg/dL (9-20); Carbon Dioxide 27 mmol/L (22-32); Chloride 93 mmol/L (98-107); Estimated Glomerular Filt Rate > 60 mL/min (>60); Glucose 112 mg/dL (80-110); HEMOLYSIS 15 (0-50); Magnesium 1.8 mg/dL (1.6-2.3); Potassium 4.1 mmol/L (3.4-5.1); Sodium 128 mmol/L (137-145)
[2023-11-08 06:27] LABS: Calcium 6.3 mg/dL (8.4-10.2)
[2023-11-08] MEDS: FUROSEMIDE 40 MG/4 ML VIAL IV (08:44)
[2023-11-08] MEDS: APIXABAN 5 MG TABLET PO ×2 (08:44→20:30)
[2023-11-08] MEDS: POTASSIUM CHLORIDE 10 MEQ TAB PO ×2 (08:44→20:29)
[2023-11-08] MEDS: TAMSULOSIN 0.4 MG CAPSULE PO (08:44)
[2023-11-08] MEDS: SPIRONOLACTONE 25 MG TABLET PO (08:44)
[2023-11-08] MEDS: carvediloL 3.125 MG TABLET 6.25 MG PO ×2 (08:45→20:29)
--- NOTE | 2023-11-08 11:05 | PT.IPTN ---
Current Diagnoses COVID-19 (11/05/23) Physical Therapy Treatment Note M2 PT-IP Current Condition Start: 11/06/23 11:59 Freq: NEEDED Status: Active Protocol: Document 11/06/23 12:07 AMB (Rec: 11/06/23 12:36 AMB [id number]) Physical Therapy Current Condition Current Condition Evaluation Date 11/06/23 Treatment Diagnosis weakness;Covid Onset Date 11/05/23 M3 PT-IP Subjective Start: 11/06/23 11:59 Freq: NEEDED Status: Active Protocol: Document 11/08/23 11:29 TS (Rec: 11/08/23 11:38 TS [id number]) Subjective Physical Therapy Visit Type Type Treatment Note Visit Start Time 11:05 Visit Stop Time 11:28 Total Visit Minutes 23 Number of THREAD PULLER Visits 2 Physical Therapy Visit Comments Patient Comments Pt found resting in bed, nursing in room, pt agreeable to PT. M4 PT-IP Mobility and Gait Start: 11/06/23 11:59 Freq: NEEDED Status: Active Protocol: Document 11/08/23 11:29 TS (Rec: 11/08/23 11:38 TS [id number]) PT-Bed Mobility Assessment Supine to Sit Supine to Sit Standby Assistance,Head of Bed Elevated Sit to Supine Sit to Supine Standby Assistance Scooting Scooting to Edge of Bed Standby Assistance Scooting Up and Down in Bed Standby Assistance PT-Transfer Assessment Sit to and From Stand Sit to and from Stand Standby Assistance Equipment Transfer Assistive Device Gait Belt,Front Wheeled Walker Comments Mobility Comments Pt found resting on RA Spo2 95 %. Sit to supine SBA from slightly elevated HOB with BUE support ot upright trunk. He performed sit to stand with FWW SBA. Pt ambulated in room ~100'SBA/Nika, pt is unsteady with gait at times and required Nika for x1LOB. He performed balancing ex of NBOS w/ eyes open/closed for ~30, tandem stance for ~2 and SLS for ~2 on each LEs. He performed sit to stand test x5 in 15 with use of FWW. Pt back in bed, all needs met, nursing entering room. Gait Assessment Gait Gait Assistance Required: Standby Assistance,Contact Guard Assist Distance (Feet) 100 Assistive Devices Assistive Device Gait Belt,Front Wheeled Walker Gait Deviations General Gait Pattern Decreased Stride Length Factors Limiting Gait Function Factors Limiting Gait Function Decreased Activity Tolerance, Decreased Strength,Poor Balance Comments Gait Comments See mobility comments PT-Balance Assessment Sitting Balance and Reactions Static Sitting Balance Ability Good Dynamic Sitting Balance Ability Fair Standing Balance and Reactions Static Standing Balance Ability Fair Dynamic Standing Balance Ability Fair Comments Other Balance Tests/Deviations/Treatment See mobility comments : M5 PT-IP Objective Assessments Start: 11/06/23 11:59 Freq: NEEDED Status: Active Protocol: Document 11/06/23 12:07 AMB (Rec: 11/06/23 12:36 AMB [id number]) Orientation Orientation/Cognition Level of Alertness Alert M6 PT-IP Treatment Start: 11/06/23 11:59 Freq: NEEDED Status: Active Protocol: Document 11/06/23 12:07 AMB (Rec: 11/06/23 12:36 AMB [id number]) Physical Therapy Treatment Exercises Exercises Ankle Pumps M7 PT-IP Assessment and Plan Start: 11/06/23 11:59 Freq: NEEDED Status: Active Protocol: Document 11/08/23 11:29 TS (Rec: 11/08/23 11:38 TS [id number]) PT Summary Assessment and Plan Potential Rehabilitation Potential Good Summary Impairments Strength,Balance,Bed Mobility, Transfers,Gait,Activity Tolerance Progress Towards Goals Progressing Toward Goals Assessment Summary Darren continues to do well with his mobility. He is SBA for all bed mobility and sit to stand with FWW. He ambulated in room ~100' SBA/Nika for x1 LOB, pt is unsteady with gait. He performed various balance ex(see above), has difficulty with dynamic balance activities. PT is recommending pt return home with assist. Pt may benefit from HHPT or outpatient PT. Goals Bed Mobility Goal Standby Assistance Transfer Goal Standby Assistance Gait Goal Contact Guard Assistance,Front Wheel Walker Gait Distance 150 Days to Meet Goals 5 Frequency of Treatment Frequency Of Treatment Once a Day Treatment Plan Physical Therapy Treatment Plan Bed Mobility Training,Transfer Training,Gait Training, Therapeutic Exercise,Balance Retraining Recommendations To Nursing Amount of Assist Needed 1 Person Assist Discharge Recommendations PT Discharge Recommendations Home with Assistance,Home Health Transportation Needs at Discharge Private Vehicle
--- NOTE | 2023-11-08 11:39 | P.PN_ITS ---
Subjective Subjective Interval history: Patient feeling more fatigued today. Still on room air. Has diuresed 11L since admission. Order placed to have vargas removed. Exam Vital Signs (past 8 hours): - 11/08/23 04:10 11/08/23 08:00 11/08/23 08:45 Temperature 96.9 F L 96.8 F L Pulse Rate 63 53 L 56 L Respiratory Rate 18 20 Blood Pressure 127/61 120/64 120/64 Pulse Oximetry 93 94 Oxygen Flow Rate 0 0 Oxygen Delivery Method Room Air Oxygen Flow Rate 0 Narrative Exam Narrative: GEN: NAD, appears fatigued today CV: irregular, no murmurs PULM: improved rhonchi on left, otherwise clear on right ABD: soft, nontender EXT: 2+ pitting edema bilaterally has improved NEURO: awake, alert, no focal deficits noted Objective Labs 11/08/23 05:50 11/08/23 05:50 Labs: Laboratory Results - last 24 hr 11/08/23 05:50 WBC 5.5 RBC 3.79 L Hgb 12.7 L Hct 37.3 L MCV 98.2 MCH 33.6 MCHC 34.2 RDW 15.3 H Plt Count 127 L Neut % (Auto) 81.8 H Lymph % (Auto) 10.7 L [place] % (Auto) 6.8 Eos % (Auto) 0.3 L Baso % (Auto) 0.4 Neut # (Auto) 4500 Lymph # (Auto) 600 L [place] # (Auto) 400 Eos # (Auto) 0 Baso # (Auto) 0 Sodium 128 L Potassium 4.1 Chloride 93 L Carbon Dioxide 27 BUN 15 Creatinine 0.47 L Estimated GFR > 60 BUN/Creatinine Ratio 31.9 H Glucose 112 H Calcium 6.3 L* Magnesium 1.8 PFSH Medical History Tinea unguium Systolic CHF, chronic Do not resuscitate Mixed hyperlipidemia Essential hypertension Type 2 diabetes mellitus with cardiac complication Chronic anticoagulation Chronic atrial fibrillation Coronary artery disease Lung cancer History of UTI BPH w urinary obs/LUTS HTN (hypertension) Hypercholesteremia GERD (gastroesophageal reflux disease) Diverticular disease CAD (coronary artery disease) Chronic UTI BPH (benign prostatic hyperplasia) B12 deficiency Surgical History Hx of prostate biopsy H/O cystoscopy S/P CABG x 2 Social History household members: spouse Smoking Status: Former smoker Tobacco: How many years used: 20 alcohol intake: never caffeine: Yes Assessment & Plan Assessment & Plan narrative: 1. Acute respiratory distress, secondary to COVID infection and acute on chronic CHFrEF exacerbation, improving -COVID positive on PCR, not requiring oxygen now so steroids/remdesivir not indicated -patient did get IV lasix in ED, diuresing well -plan to continue IV lasix, but given severe electrolyte abnormalities will attempt replacement before giving additional lasix -echo with EF 20-25%, no prior for comparison but patient states his last EF was 30% -continue home entresto, coreg, IV lasix 40mg BID -duonebs, mucomyst PRN 2. Hypocalcemia, hypomagnesemia, hyponatremia, improving -suspect low magnesium caused low calcium -suspect low magnesium is caused by continued diuretics and now diarrhea and poor oral intake during recent illness -ordered for mag and calcium repletion -monitor lytes -if continues to have significant abnormalities despite repletion may need parathyroid workup -Na up to 128, continue lasix 3. History of lung cancer -no evidence of recurrence per last oncology note -has noted chronic findings of rul abnormality and right pleural effusion that have been previously thought secondary to chf and/or radiation -if patient not improving from respiratory standpoint will order CT of chest 4. Atrial fibrillation -continue coreg, eliquis 5. BPH -continue tamsulosin 6. CAD -continue imdur 7. Type 2 DM -hold home meds -ordered insulin sliding scale CODE: DNR PRoxy: jose m Khoury Dispo: PT cleared for home with HH. Likely in 1-2 days. Quality VTE Deep Vein Thrombosis/Pulmonary Embolism Present on Admission: No
[2023-11-08] MEDS: INSULIN LISPRO 100 UNIT/ML 3ML VIAL SUBCUT (12:05)
--- NOTE | 2023-11-08 12:27 | CM.DPC ---
DCP Cont: Called over at [facility] [place], spoke to Megan in intake, asked her if she can accept patient. Confirmed should be able to accept, is straight Medicare'. Let her know that she will be updated when patient discharges. P: DCP to continue to follow. Plan is home with [facility] when deemed medically stable. Ana Maria Cr RN/Leather Piece Inspector
[2023-11-08] MEDS: FUROSEMIDE 40 MG TABLET PO (16:04)
[2023-11-08] MEDS: ACETAMINOPHEN 325 MG TABLET 650 MG PO (20:29)
[2023-11-08] MEDS: SODIUM CHLORIDE 0.9% FLUSH 10 ML IV (20:30)
[2023-11-09 00:21] VITALS: BP 123/62; PULSE 54; RESP 20; TEMP 36.1; O2SAT 95
[2023-11-09 03:30] VITALS: BP 129/74; PULSE 63; RESP 20; TEMP 36.1; O2SAT 94
[2023-11-09 06:04] LABS: Add Manual Diff / Slide Review NO; Basophils Absolute Auto 0 /uL (0-100); Basophils Percent Auto 0.3 % (0-2); Eosinophils Absolute Auto 0 /uL (0-450); Eosinophils Percent Auto 0.2 % (2-4); Hematocrit 37.1 % (41-53); Hemoglobin 12.7 g/dL (13.5-17.5); Lymphocytes Absolute Auto 500 /uL (1100-4500); Lymphocytes Percent Auto 6.4 % (25-40); Mean Corpuscular HGB Conc 34.2 % (30-36); Mean Corpuscular Volume 99.4 fL (80-100); Monocytes Absolute Auto 300 /uL (0-900); Monocytes Percent Auto 4.5 % (3-14); Neutrophils Absolute Auto 6600 /uL (1500-7000); Neutrophils Percent Auto 88.6 % (50-75); Platelet Count 121 X10^3/uL (150-400); Red Blood Cell Count 3.73 X10^6/uL (4.5-5.9); Red Cell Distribution Width 15.6 % (11.6-14.8); White Blood Cell Count 7.4 X10^3/uL (4.5-11.0)
[2023-11-09 06:20] LABS: BUN Creatinine Ratio 36.4 (6-22); Blood Urea Nitrogen 16 mg/dL (9-20); Calcium 7.2 mg/dL (8.4-10.2); Carbon Dioxide 29 mmol/L (22-32); Chloride 96 mmol/L (98-107); Estimated Glomerular Filt Rate > 60 mL/min (>60); Glucose 126 mg/dL (80-110); HEMOLYSIS < 15 (0-50); Potassium 5.3 mmol/L (3.4-5.1); Sodium 128 mmol/L (137-145)
[2023-11-09 06:22] LABS: Magnesium 1.7 mg/dL (1.6-2.3)
[2023-11-09] MEDS: PANTOPRAZOLE DR 40 MG TABLET PO (06:31)
[2023-11-09] MEDS: ISOSORBIDE MONONITRATE ER 30 MG TABLET PO (06:31)
[2023-11-09 08:25] VITALS: BP 125/65; PULSE 60
[2023-11-09] MEDS: POTASSIUM CHLORIDE 10 MEQ TAB PO (08:25)
[2023-11-09] MEDS: carvediloL 3.125 MG TABLET 6.25 MG PO (08:25)
[2023-11-09] MEDS: APIXABAN 5 MG TABLET PO (08:25)
[2023-11-09] MEDS: FUROSEMIDE 40 MG TABLET PO (08:25)
[2023-11-09] MEDS: SPIRONOLACTONE 25 MG TABLET PO (08:25)
[2023-11-09] MEDS: SODIUM CHLORIDE 0.9% FLUSH 10 ML IV (08:26)
[2023-11-09 08:27] VITALS: BP 125/65; PULSE 60; RESP 18; TEMP 36.3; O2SAT 93
[2023-11-09] MEDS: TAMSULOSIN 0.4 MG CAPSULE PO (08:27)
--- NOTE | 2023-11-09 11:03 | PM.DS.1 ---
History of Present Illness History of Present Illness Chief complaint: sent by PCP Narrative: 82M with PMH CHFrEF, hx lung cancer in remission, DM, afib, CAD, BPH who presents to the hospital with cough and shortness of breath. He notes a few days ago he went to another hospital ED due to feeling weak. He was noted to have low calcium and magnesium levels. He was given supplementation of this and discharged from the ED. He notes he has continued to take his diuretic and despite this has noted over the last week increasing lower extremity edema. He notes he has had a few days of diarrhea. He was exposed to COVID a few days ago from a family member and then developed cough and shortness of breath. He went to see his PCP who recommended evaluation in the ED. In the ED, workup was done, vitals notable for afebrile, heart rate in 60s, respiratory in 30s, blood pressure 120s/70s, sats 94% on room air. Per ED physician patient desat to 80s with ambulation. Labs reviewed by me and notable for WBC 7.4, hgb 13.9, plts 122. Na 129, BUN 0.60. Lactate 1.8. Calcium 5.1, magnesium 0.3. BNP 3570. Trop 0.012. COVID positive. Chest xray with small right sided pleural effusion, stable opacity in the right lung apex, both findings have been noted before after patient had radiation to lung. He was ordered for magnesium and lasix and admitted for further treatment. 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 Acute on chronic CHFrEF 2. COVID-19 positive 3. Acute hypocalcemia 4. Acute hyponatremia 5. Acute hypomagnesemia 6. Chronic atrial fibrillation 7. History of lung CA in remission 8. Type 2 diabetes 9. Stable opacity right lung base TTE: 1) Mildly to moderately enlarged left ventricle with severely reduced systolic function (EF 20-25%). 2) Moderately to severely enlarged right ventricle with moderately reduced function. 3) Moderately biatrial enlargement. 4) There is mild to moderate mitral regurgitation. 5) There is moderate tricuspid regurgitation. 6) The right ventricular systolic pressure is estimated to be at least 37 mmHg based on an estimated right atrial pressure of 8 mm Hg. 7) No prior Echo available for comparison. Hospital Course: Pt was diuresed with IV Lasix with net 11 liters negative fluid balance with improvement in respiratory distress. ECHO showed LVEF 20-25%. He remained in stable afib. He did not require supplemental O2. He is feeling better and able to dischrge home. Status at Discharge Cognitive/behavioral status at discharge: oriented Functional status at discharge: independent ambulation Overall status at discharge: patient is progressing back to baseline Time Spent with Patient Time spent: Greater than 30 minutes Exam Vital Signs (past 8 hours): - 11/09/23 03:30 11/09/23 08:25 11/09/23 08:27 Temperature 96.9 F L 97.3 F L Pulse Rate 63 60 60 Respiratory Rate 20 18 Blood Pressure 129/74 125/65 125/65 Pulse Oximetry 94 93 Oxygen Flow Rate 0 0 Oxygen Delivery Method Room Air Oxygen Flow Rate 0 Narrative Exam Narrative: Gen: alert, NAD Lungs: bilat rhonchi Ext: no edema Neuro: nl speech, affect Objective Labs 11/09/23 05:45 11/09/23 05:45 Labs: Laboratory Results - last 24 hr 11/09/23 05:45 WBC 7.4 RBC 3.73 L Hgb 12.7 L Hct 37.1 L MCV 99.4 MCH 34.0 MCHC 34.2 RDW 15.6 H Plt Count 121 L Neut % (Auto) 88.6 H Lymph % (Auto) 6.4 L [place] % (Auto) 4.5 Eos % (Auto) 0.2 L Baso % (Auto) 0.3 Neut # (Auto) 6600 Lymph # (Auto) 500 L [place] # (Auto) 300 Eos # (Auto) 0 Baso # (Auto) 0 Sodium 128 L Potassium 5.3 H D Chloride 96 L Carbon Dioxide 29 BUN 16 Creatinine 0.44 L Estimated GFR > 60 BUN/Creatinine Ratio 36.4 H Glucose 126 H Calcium 7.2 L Magnesium 1.7 PFSH Medical History Tinea unguium Systolic CHF, chronic Do not resuscitate Mixed hyperlipidemia Essential hypertension Type 2 diabetes mellitus with cardiac complication Chronic anticoagulation Chronic atrial fibrillation Coronary artery disease Lung cancer History of UTI BPH w urinary obs/LUTS HTN (hypertension) Hypercholesteremia GERD (gastroesophageal reflux disease) Diverticular disease CAD (coronary artery disease) Chronic UTI BPH (benign prostatic hyperplasia) B12 deficiency Surgical History Hx of prostate biopsy H/O cystoscopy S/P CABG x 2 Social History household members: spouse Smoking Status: Former smoker Tobacco: How many years used: 20 alcohol intake: never caffeine: Yes Discharge Plan Discharge Plan Patient Disposition: Home Provider Discharge Comment: You were treated for heart failure exacerbation. We took off 11 liters of fluid excess over your intake. Take 2 tablets (40 mg) of your furosemide every morning using your existing pills. Have your provider send in new mail order prescription at your next follow up for the 40 mg strength of furosemide. Please see your provider next week for follow up. Discharge orders & Medications Prescriptions: New furosemide 20 mg tablet 40 mg PO DAILY Qty: 1 0RF Continued spironolactone [Aldactone] 25 mg tablet 25 mg PO DAILY Qty: 90 3RF tamsulosin 0.4 mg capsule See Rx Instructions .ROUTE .COMPLEX Qty: 90 3RF Dose Instruction: TAKE 1 CAPSULE AT BEDTIME Rx Instructions: TAKE 1 CAPSULE AT BEDTIME omeprazole 20 mg capsule,delayed release(DR/EC) 60 mg PO DAILY Qty: 270 3RF carvedilol 6.25 mg tablet 6.25 mg PO BID Qty: 180 3RF methenamine hippurate 1 gram tablet See Rx Instructions .ROUTE .COMPLEX Qty: 60 3RF Dose Instruction: TAKE 1 TABLET TWICE A DAY WITH VITAMIN C 500 MG. (NEED APPOINTMENT PRIOR TO FURTHER REFILLS, NO FURTHER REFILLS UNTIL SEEN) Rx Instructions: TAKE 1 TABLET TWICE A DAY WITH VITAMIN C 500 MG. (Refills may be readily obtained through his PCP) Jardiance 10 mg tablet 10 mg PO DAILY potassium chloride 10 mEq tablet extended release 10 meq PO BID atorvastatin [Lipitor] 40 mg tablet 40 mg PO DAILY Qty: 90 3RF calcium carbonate 260 mg calcium (648 mg) tablet 260 mg PO DAILY magnesium oxide 500 mg tablet 500 mg PO DAILY Patient Comments: unable start because was unavailable Jardiance 10 mg tablet 10 mg PO DAILY Entresto 97-103 mg tablet 1 tab PO BID ramipril 10 mg capsule 10 mg PO DAILY amlodipine 5 mg tablet 5 mg PO DAILY acetaminophen [Tylenol] 325 mg capsule 325 mg PO ONCE PRN (Reason: Pain (Scale Score 1-3)) Eliquis 5 mg tablet 5 mg PO BID ascorbate calcium (vitamin C) 500 mg tablet 500 mg PO BID isosorbide mononitrate 30 mg tablet extended release 24 hr 30 mg PO DAILY mecobalamin (vitamin B12) 1,000 mcg tablet,chewable 1,000 mcg PO DAILY Discontinued furosemide [Lasix] 20 mg tablet 10 mg PO BID Follow up/Referrals: Luis Burris MD [Primary Care Provider] - Diet/Activity/Treatments Diet: Diet as Tolerated Visit Report/Discharge Packet Instructions: DI for Heart Failure, How to Prevent Falls, DI for COVID-19 (Suspected or Confirmed ), COVID-19 Viral Test Stand Alone Forms: Patient Portal/API, Stroke Signs & Symptoms Discharge Data Primary Care Provider: Luis Burris V Quality VTE Deep Vein Thrombosis/Pulmonary Embolism Present on Admission: No
--- NOTE | 2023-11-09 11:16 | CM.DPC ---
DCP Discharge Home with HH Per MD, pt is medically stable to d/c home today with HH and no identified barriers to discharge. SW faxed d/c summ, F2F, and HH orders to [facility] to review and left msg updating them on pt d/c home today and they had confirmed yesterday that they could accept pt. Plan: Patient to d/c home today via family POV and new [facility] referral made and niece to assist as needed. SOLEDAD Bach
--- NOTE | 2023-11-09 12:29 | PC.NURSE ---
Day shift: Discharge instructions gone over with patient. All questions answered, patient stated understanding. Pt has no telemetry or IV access. All belongings with patient. Patient's niece came to pick him up. RADHA Ritter escorted patient downstairs to exit via wheelchair.
== END 2023-11-09 12:31 | disposition home health service (06) | DRG 177 ==
LOC: ED 12:49 → AC 12:49
PROVIDERS: Student in an Organized Health Care Education/Training Program; Admitting Provider Internal Medicine; Emergency Provider Emergency Medicine; PCP Internal Medicine; Referring Provider Emergency Medicine; Visit Provider Internal Medicine
DX: U07.1 COVID-19 (principal); I50.23 Acute on chronic systolic (congestive) heart failure; E87.1 Hypo-osmolality and hyponatremia; I48.20 Chronic atrial fibrillation, unspecified; R06.03 Acute respiratory distress; E83.51 Hypocalcemia; E83.42 Hypomagnesemia; N40.0 Benign prostatic hyperplasia without lower urinary tract symptoms; I25.10 Atherosclerotic heart disease of native coronary artery without angina pectoris; E11.9 Type 2 diabetes mellitus without complications; K21.9 Gastro-esophageal reflux disease without esophagitis; I11.0 Hypertensive heart disease with heart failure; E78.2 Mixed hyperlipidemia; Z79.84 Long term (current) use of oral hypoglycemic drugs; Z87.891 Personal history of nicotine dependence; Z79.01 Long term (current) use of anticoagulants; Z66 Do not resuscitate
CPT/HCPCS: 36415; 36600; 71045; 80048; 80053; 82550; 82805; 82962; 83605; 83690; 83735; 83880; 84100; 84145; 84484; 85025; 85610; 85730; 87040; 87633; 93005; 93010; 93306; 94640; 94762; 96365; 97116; 97161; 97530; 99285; J0612; J1815; J1940; J3475

== ENCOUNTER → 2023-11-13 16:16 | Outpatient (CLI) | payer MEDICARE, OTHER, SELFPAY ==
[2023-11-05 13:46] VITALS: BMI 28.3
[2023-11-13 17:30] LABS: BUN Creatinine Ratio 30.4 (6-22); Blood Urea Nitrogen 21 mg/dL (9-20); Calcium 9.4 mg/dL (8.4-10.2); Carbon Dioxide 28 mmol/L (22-32); Chloride 96 mmol/L (98-107); Estimated Glomerular Filt Rate > 60 mL/min (>60); Glucose 137 mg/dL (80-110); HEMOLYSIS < 15 (0-50); Magnesium 1.6 mg/dL (1.6-2.3); Potassium 4.9 mmol/L (3.4-5.1); Sodium 132 mmol/L (137-145)
== END ==
PROVIDERS: PCP Internal Medicine; Referring Provider Internal Medicine; Visit Provider Internal Medicine
DX: I50.22 Chronic systolic (congestive) heart failure (principal); E83.42 Hypomagnesemia
CPT/HCPCS: 36415; 80048; 83735

== ENCOUNTER 2024-03-16 14:53 | Inpatient (IN) | payer MEDICARE, OTHER, SELFPAY ==
[2023-11-05 13:46] VITALS: BMI 28.3
[2024-03-16] VITALS (11 sets, daily range): BP systolic 127–161; BP diastolic 67–82; PULSE 59–69; RESP 18–29; TEMP 36.2–36.9; O2SAT 94–96; BMI 26.9
--- NOTE | 2024-03-16 15:12 | DI.CT.S_ITS ---
PROCEDURE: CT HEAD/BRAIN WO CON INDICATIONS: fall/hit head/thinners TECHNIQUE: Noncontrast 4.5 mm thick angled axial sections acquired from the foramen magnum to the vertex, with coronal and sagittal reformats. For radiation dose reduction, the following was used: automated exposure control, adjustment of mA and/or kV according to patient size. COMPARISON: None. FINDINGS: Image quality: Diagnostic. CSF spaces: Basal cisterns are patent. No extra-axial fluid collections. There is acute hematoma within left lateral ventricle. Slight prominent size of left lateral ventricle compared to the right side is seen. Brain: No acute intraparenchymal hemorrhage is seen. There is up to 3 mm midline shift to the right series 2, image 16. There is cerebral volume loss for age, with resultant ventricular and sulcal prominence. There are periventricular and deep white matter chronic small vessel ischemic changes. There is intracranial internal carotid artery atherosclerosis. Skull and face: Calvarium and visualized facial bones appear intact, without suspicious lesions. Sinuses: Visualized sinuses and mastoids are clear. IMPRESSION: 1. Acute intraventricular blood within left lateral ventricle with slightly asymmetrically enlarged left lateral ventricle compared to the right side and up to 3 mm midline shift to the right. 2. No blood is seen in the 3rd or 4th ventricle. No acute intraparenchymal hemorrhage. No subdural or subarachnoid hemorrhage. 3. Age related volume loss and extensive white matter chronic small vessel ischemic changes. Findings were reported to referring ER physician at the time of dictation. Dictated by: Holland Armstrong M.D. on 03/16/2024 at 15:35 Approved by: Holland Armstrong M.D. on 03/16/2024 at 15:39
--- NOTE | 2024-03-16 15:12 | DI.CT.S_ITS ---
PROCEDURE: CT CERVICAL SPINE WO CON INDICATIONS: fall/hit head/thinners TECHNIQUE: Noncontrast 3 mm thick sections acquired from the skull base to the T4 level. Sagittal and coronal reformats were then constructed. For radiation dose reduction, the following was used: automated exposure control, adjustment of mA and/or kV according to patient size. COMPARISON: None. FINDINGS: Image quality: Diagnostic Bones: Moderate degenerative changes. There is reversal of the normal cervical lordosis. Trace anterolisthesis of C2 on C3, likely degenerative in nature. No acute appearing vertebral body height loss or definite traumatic subluxation. Partially seen sternotomy wires. Soft tissues: No pathologic prevertebral soft tissue swelling. There are vascular calcifications. No apical pneumothorax, however there is emphysema and dense consolidation in the right upper lung. Small right pleural effusion. IMPRESSION: Moderate degenerative changes. No acute fracture or traumatic subluxation. If there is high concern for further derangement, consider MRI evaluation. Dense consolidation the right upper lung partially seen. Small right pleural effusion. Dictated by: Mikey Castillo M.D. on 03/16/2024 at 16:02 Approved by: Mikey Castillo M.D. on 03/16/2024 at 16:04
--- NOTE | 2024-03-16 15:27 | DI.RAD.S_ITS ---
PROCEDURE: XR CHEST 1V INDICATIONS: chest pain TECHNIQUE: One view of the chest was acquired. COMPARISON: [facility], CR, XR CHEST 1V, 11/05/2023, 10:37. FINDINGS: Surgical changes and devices: Median sternotomy wires and surgical clips are seen. Lungs and pleura: There is mild pulmonary vascular congestion and pulmonary edema. Blunting of right costophrenic angle is seen suggestive of trace right pleural effusion. Underlying interstitial small infiltrates cannot be entirely excluded. No gross pneumothorax. Mediastinum: Mediastinal contours appear normal. Heart size is enlarged. Bones and chest wall: No suspicious bony lesions. Overlying soft tissues appear unremarkable. IMPRESSION: Finding is suggestive of CHF. Superimposed interstitial infiltrates cannot be entirely excluded. Trace right pleural effusion. No pneumothorax. Dictated by: Holland Armstrong M.D. on 03/16/2024 at 16:51 Approved by: Holland Armstrong M.D. on 03/16/2024 at 16:52
--- NOTE | 2024-03-16 15:37 | ED_ITS ---
HPI - Fall General Chief Complaint: Fall Stated Complaint: falls, head injury, rapid wt loss Time Seen by Provider: 03/16/24 15:29 Source: patient, family and RN notes reviewed Mode of arrival: Wheelchair History of Present Illness HPI Narrative: 83-year-old male with history of atrial fibrillation on apixaban, hypertension, dyslipidemia, coronary artery disease, hypomagnesemia, BPH who presents with increasing generalized weakness, recurrent falls, difficulty with ambulation, weight loss on mild mental changes. Niece states he does seem a little bit confused although she states he is able to answer questions. They are unsure if he has been taking his medications, she helps for him to obtain his medications but he dispenses them himself. Patient does not recall if he has been taking them or not. Patient has had multiple falls she states she is been here since Friday and had several falls and had increasing weakness inability to get around with his walker. No clear lateralizing weakness described more general. Patient denies headache denies sudden vision changes denies any neck or back pain, no chest pain or shortness of breath. No reported nausea or vomiting or other new GI or urinary symptoms. Patient pushing by primary care who shot him here for evaluation. Patient can tell me the year, month in his off by the day of the week by 1 day. Denies any recent surgeries. No known drug allergies. No tobacco, no regular alcohol or recreational drugs. He has been living independently in his own home alone. He notes he is DNR/DNI, he is unsure if he would wish for intervention if offered by Neurosurgery. He does have a copy of his POLST with him. Related Data Home Medications Medication Instructions Recorded Confirmed acetaminophen 325 mg capsule 325 mg PO ONCE PRN Pain (Scale 01/24/22 03/16/24 (Tylenol) Score 1-3) apixaban 5 mg tablet (Eliquis) 5 mg PO BID 01/24/22 03/16/24 ascorbate calcium (vitamin C) 500 500 mg PO BID 01/24/22 03/16/24 mg tablet isosorbide mononitrate 30 mg 30 mg PO DAILY 01/24/22 03/16/24 tablet,extended release 24 hr mecobalamin (vitamin B12) 1,000 1,000 mcg PO DAILY 01/24/22 03/16/24 mcg chewable tablet potassium chloride 10 mEq 10 meq PO BID 01/22/23 03/16/24 tablet,extended release calcium carbonate 260 mg calcium 260 mg PO DAILY 11/05/23 03/16/24 (648 mg) tablet empagliflozin 10 mg tablet 10 mg PO DAILY 11/05/23 03/16/24 (Jardiance) magnesium oxide 500 mg PO DAILY 11/05/23 03/16/24 sacubitril 97 mg-valsartan 103 mg 1 tab PO BID 11/05/23 03/16/24 tablet (Entresto) amlodipine 5 mg tablet 5 mg PO BID 03/16/24 03/16/24 tamsulosin 0.4 mg capsule 0.4 mg PO BEDTIME 03/16/24 Previous Rx's Medication Instructions Recorded omeprazole 20 mg capsule,delayed 60 mg (3 x 20 mg) PO DAILY #270 04/16/23 release caps carvedilol 6.25 mg tablet 6.25 mg PO BID #180 tabs 06/02/23 methenamine hippurate 1 gram tablet See Rx Instructions .Route 08/13/23 .COMPLEX #60 tabs spironolactone 25 mg tablet 25 mg PO DAILY #90 tabs 11/28/23 (Aldactone) atorvastatin 40 mg tablet (Lipitor) 40 mg PO DAILY #90 tabs 12/25/23 Allergies Allergy/AdvReac Type Severity Reaction Status Date / Time No Known Drug Allergies Allergy Verified 03/16/24 12:00 Review of Systems Review of Systems ROS Unobtainable: All systems reviewed & are unremarkable except as noted in HPI and below Patient History Medical History Repeated falls Tinea unguium Systolic CHF, chronic Do not resuscitate Mixed hyperlipidemia Essential hypertension Type 2 diabetes mellitus with cardiac complication Chronic anticoagulation Chronic atrial fibrillation Coronary artery disease Lung cancer History of UTI BPH w urinary obs/LUTS HTN (hypertension) Hypercholesteremia GERD (gastroesophageal reflux disease) Diverticular disease CAD (coronary artery disease) Chronic UTI BPH (benign prostatic hyperplasia) B12 deficiency Surgical History Hx of prostate biopsy H/O cystoscopy S/P CABG x 2 Social History household members: spouse Smoking Status: Former smoker Tobacco: How many years used: 20 alcohol intake: never caffeine: Yes Smoking Status: Former smoker Substance Use Type: does not use Exam Narrative Exam Narrative: GEN: Patient appears in mild distress. HEAD: Patient has ecchymosis on the top of his head, he also has some ecchymosis of his right pinna, no raccoon/Godoy sign. NECK: Nontender, painless range of motion, trachea midline Positive for Nexus criteria, no midline line tenderness, distracting injury, positive for altered mental status, no neuro deficit, recent EtOH. EYES: PERRLA, EOMI ENT: External inspection normal other than noted above, trachea is midline, TM's are normal no hemotypanum, Nares are clear, no septal hematoma, no dental or oral injury, airway is normal and with normal occlusion, No bony tenderness RESP: Chest is nontender and has symmetric movement, no ecchymosis, breath sounds are normal no crackles, wheezes or rales CVS: Heart sounds are normal, no murmur noted, No JVD. ABG/GI: Nontender, soft, normal bowel sounds, no distention, no organomegaly, pelvic rock is negative NEURO: Oriented AOx3, neuro is grossly intact, sensation and motor is normal all 4 extremities moving, cranial nerves II through XII are intact, GCS is 14 PSYCH: Normal mood and affect SKIN: Intact, warm and dry, no crepitus and without decubitus BACK: No CVA tenderness, no vertebral tenderness, no step-off's, no crepitus EXT: Atraumatic, hips are nontender, no pedal edema, normal color and temperature, normal range of motion of extremities with normal tendon exam, 2+ pulses in all four extremities Initial Vital Signs Initial Vital Signs: Vital Signs Temperature 98.4 F 03/16/24 15:03 Pulse Rate 65 03/16/24 15:03 Respiratory Rate 18 03/16/24 15:03 Blood Pressure 127/67 03/16/24 15:03 Pulse Oximetry 95 03/16/24 15:03 Oxygen Delivery Method Room Air 03/16/24 15:03 Course Orders Ordered: ED Orders 03/16/24 15:12 CT cervical spine wo con Stat CT head/brain wo con Stat 03/16/24 15:27 XR chest 1V Stat Complete Blood Count AUTO DIFF Stat Comprehensive Metabolic Panel Stat Lipase Stat Magnesium Stat PTT Partial Thromboplastin Gerson Stat Prothrombin Time INR Stat Troponin & CK Cardiac Panel Stat EKG-12 Lead Stat 03/16/24 15:37 Type and Screen Stat 03/16/24 15:38 XR pelvis 1-2V Stat Vital Signs Vital signs: Vital Signs - 8 hr 03/16/24 15:03 03/16/24 15:35 03/16/24 15:39 Temperature 98.4 F Pulse Rate 65 69 Respiratory Rate 18 Blood Pressure 127/67 150/82 H Pulse Oximetry 95 Oxygen Delivery Method Room Air 03/16/24 15:39 03/16/24 15:41 03/16/24 15:41 Temperature Pulse Rate 62 61 Respiratory Rate 28 H Blood Pressure 145/81 H Pulse Oximetry 96 95 Oxygen Delivery Method 03/16/24 16:00 Temperature Pulse Rate 61 Respiratory Rate Blood Pressure Pulse Oximetry 96 Oxygen Delivery Method MDM - Fall Lab Data 03/16/24 15:34 03/16/24 15:34 Labs: Lab Results 03/16/24 Range/Units 15:34 WBC 7.8 (4.5-11.0) X10^3/uL RBC 3.61 L (4.5-5.9) X10^6/uL Hgb 12.0 L (13.5-17.5) g/dL Hct 35.2 L (41-53) % MCV 97.4 (80-100) fL MCH 33.2 (26-34) PG MCHC 34.1 (30-36) % RDW 14.8 (11.6-14.8) % Plt Count 176 (150-400) X10^3/uL Neut % (Auto) 84.1 H (50-75) % Lymph % (Auto) 7.3 L (25-40) % [place] % (Auto) 8.1 (3-14) % Eos % (Auto) 0.1 L (2-4) % Baso % (Auto) 0.4 (0-2) % Neut # (Auto) 6500 (1284-4600) /uL Lymph # (Auto) 600 L (7765-6178) /uL [place] # (Auto) 600 (0-900) /uL Eos # (Auto) 0 (0-450) /uL Baso # (Auto) 0 (0-100) /uL PT 19.0 H (9.4-12.5) SECONDS INR 1.6 H (0.9-1.3) APTT 31 (25.1-36.5) SECONDS Sodium 128 L (137-145) mmol/L Potassium 3.3 L (3.4-5.1) mmol/L Chloride 95 L (98-107) mmol/L Carbon Dioxide 27 (22-32) mmol/L BUN 20 (9-20) mg/dL Creatinine 0.43 L (0.66-1.25) mg/dL Estimated GFR > 60 (>60) mL/min BUN/Creatinine Ratio 46.5 H (6-22) Glucose 140 H (80-110) mg/dL Calcium 8.5 (8.4-10.2) mg/dL Magnesium 1.4 L (1.6-2.3) mg/dL Total Bilirubin 1.6 H (0.2-1.3) mg/dL AST 28 (17-59) IU/L ALT 16 (<50) IU/L Alkaline Phosphatase 80 (38-126) U/L Total Creatine Kinase 295 H (55-170) U/L Troponin I 0.030 (0.01-0.034) ng/mL Total Protein 6.6 (6.3-8.2) g/dL Albumin 3.8 (3.5-5.0) g/dL Globulin 2.8 (1.7-4.1) g/dL Albumin/Globulin Ratio 1.4 (1.0-2.8) Lipase 41 (23-300) U/L Blood Type A Positive Antibody Screen Negative Imaging Data CT scan - head: Radiologist's Impression: [address] [address] [address] Scan Report Signed Patient: Darren Pa MR#: [id number] : 1940 Acct:[id number] Age/Sex: 83 / M Date of Service: 03/16/24 Loc: ED Accession Number: [id number] Procedure: CT head/brain wo con Ordering Provider: Afia Batista D.O. PROCEDURE: CT HEAD/BRAIN WO CON INDICATIONS: fall/hit head/thinners TECHNIQUE: Noncontrast 4.5 mm thick angled axial sections acquired from the foramen magnum to the vertex, with coronal and sagittal reformats. For radiation dose reduction, the following was used: automated exposure control, adjustment of mA and/or kV according to patient size. COMPARISON: None. FINDINGS: Image quality: Diagnostic. CSF spaces: Basal cisterns are patent. No extra-axial fluid collections. There is acute hematoma within left lateral ventricle. Slight prominent size of left lateral ventricle compared to the right side is seen. Brain: No acute intraparenchymal hemorrhage is seen. There is up to 3 mm midline shift to the right series 2, image 16. There is cerebral volume loss for age, with resultant ventricular and sulcal prominence. There are periventricular and deep white matter chronic small vessel ischemic changes. There is intracranial internal carotid artery atherosclerosis. Skull and face: Calvarium and visualized facial bones appear intact, without suspicious lesions. Sinuses: Visualized sinuses and mastoids are clear. IMPRESSION: 1. Acute intraventricular blood within left lateral ventricle with slightly asymmetrically enlarged left lateral ventricle compared to the right side and up to 3 mm midline shift to the right. 2. No blood is seen in the 3rd or 4th ventricle. No acute intraparenchymal hemorrhage. No subdural or subarachnoid hemorrhage. 3. Age related volume loss and extensive white matter chronic small vessel ischemic changes. Findings were reported to referring ER physician at the time of dictation. Dictated by: Holland Armstrong M.D. on 03/16/2024 at 15:35 Approved by: Holland Armstrong M.D. on 03/16/2024 at 15:39 CT - cervical spine: Radiologist's Impression: [place] [address] CT Scan Report Signed Patient: Darren Pa MR#: [id number] : 1940 Acct:[id number] Age/Sex: 83 / M Date of Service: 03/16/24 Loc: ED Accession Number: [id number] Procedure: CT cervical spine wo con Ordering Provider: Afia Batista D.O. PROCEDURE: CT CERVICAL SPINE WO CON INDICATIONS: fall/hit head/thinners TECHNIQUE: Noncontrast 3 mm thick sections acquired from the skull base to the T4 level. Sagittal and coronal reformats were then constructed. For radiation dose reduction, the following was used: automated exposure control, adjustment of mA and/or kV according to patient size. COMPARISON: None. FINDINGS: Image quality: Diagnostic Bones: Moderate degenerative changes. There is reversal of the normal cervical lordosis. Trace anterolisthesis of C2 on C3, likely degenerative in nature. No acute appearing vertebral body height loss or definite traumatic subluxation. Partially seen sternotomy wires. Soft tissues: No pathologic prevertebral soft tissue swelling. There are vascular calcifications. No apical pneumothorax, however there is emphysema and dense consolidation in the right upper lung. Small right pleural effusion. IMPRESSION: Moderate degenerative changes. No acute fracture or traumatic subluxation. If there is high concern for further derangement, consider MRI evaluation. Dense consolidation the right upper lung partially seen. Small right pleural effusion. Dictated by: Mikey Castillo M.D. on 03/16/2024 at 16:02 Approved by: Mikey Castillo M.D. on 03/16/2024 at 16:04 ECG Data Attestation: I personally reviewed and interpreted this ECG as follows: Prior ECG tracings: not available for review Interpretation: AFib with right bundle rate of 64 QRS of 180 QTC 524, no acute ST elevation depression. No change from prior on 11/13/2023. [facility] Narrative Medical decision making narrative: 83-year-old male sent for increasing weakness, confusion and multiple falls with obvious ecchymosis on his head an Ear, patient is anticoagulated for atrial fibrillation with a apixaban. CT Imaging of the head shows acute hematoma in the left lateral ventricle, asymmetrically enlarged left lateral ventricle compared to right up to 3 mm midline shift to the right no blood in the 3rd or 4th ventricle no subdural subarachnoid. Age-related white matter chronic small vessel change. CT C-spine no fracture, right upper lobe consolidation. Chest x-ray Pelvic x-ray Labs white count of 7.8 hemoglobin is 12 consistent with priors for the past year, platelets are 176. Patient does have electrolyte abnormalities with a sodium of 128 potassium 3.3, chloride 95 CO2 of 27 BUN 20 creatinine 0.43 glucose of 140, Mag is slightly low at 1.4 bilirubin is up at 1.6 otherwise negative LFTs, total CK is 295. Troponin Images were pushed to [facility]. Discussed at length with family goals of care they would like for potential intervention if offered and transfer versus comfort measures. Patient and his niece are at bedside. Patient's last December. After discussion patient is adamant he would like to be comfort measures he does not wish for intervention. Patient is okay with antibiotics if they help with comfort he has not able to safely discharge home. He has a niece who has been helpful but does not live in town in his his surrogate decision maker. Both he and his knees for present when we updated his POLST and he physically was not able to sign but his niece did for him. Spoke with Dr. Villarreal, hospitalist who accepts. Discharge Plan Departure Patient Disposition: Admitted as Observation Clinical Impression: Intracranial hemorrhage Prescriptions: No Action omeprazole 20 mg capsule,delayed release(DR/EC) 60 mg PO DAILY Qty: 270 3RF carvedilol 6.25 mg tablet 6.25 mg PO BID Qty: 180 3RF methenamine hippurate 1 gram tablet See Rx Instructions .ROUTE .COMPLEX Qty: 60 3RF Dose Instruction: TAKE 1 TABLET TWICE A DAY WITH VITAMIN C 500 MG. (NEED APPOINTMENT PRIOR TO FURTHER REFILLS, NO FURTHER REFILLS UNTIL SEEN) Rx Instructions: TAKE 1 TABLET TWICE A DAY WITH VITAMIN C 500 MG. (Refills may be readily obtained through his PCP) spironolactone [Aldactone] 25 mg tablet 25 mg PO DAILY Qty: 90 3RF atorvastatin [Lipitor] 40 mg tablet 40 mg PO DAILY Qty: 90 3RF potassium chloride 10 mEq tablet extended release 10 meq PO BID calcium carbonate 260 mg calcium (648 mg) tablet 260 mg PO DAILY magnesium oxide 500 mg tablet 500 mg PO DAILY Patient Comments: unable start because was unavailable amlodipine 5 mg tablet 5 mg PO BID tamsulosin 0.4 mg capsule 0.4 mg PO BEDTIME Jardiance 10 mg tablet 10 mg PO DAILY Entresto 97-103 mg tablet 1 tab PO BID acetaminophen [Tylenol] 325 mg capsule 325 mg PO ONCE PRN (Reason: Pain (Scale Score 1-3)) Eliquis 5 mg tablet 5 mg PO BID ascorbate calcium (vitamin C) 500 mg tablet 500 mg PO BID isosorbide mononitrate 30 mg tablet extended release 24 hr 30 mg PO DAILY mecobalamin (vitamin B12) 1,000 mcg tablet,chewable 1,000 mcg PO DAILY Referrals: Luis Burris MD [Primary Care Provider] -
--- NOTE | 2024-03-16 15:38 | DI.RAD.S_ITS ---
PROCEDURE: XR PELVIS 1-2V INDICATIONS: falls, head bleed TECHNIQUE: 1 view(s) of the pelvis acquired. COMPARISON: None. FINDINGS: Bones: Moderate right worse than left bilateral hip joint osteoarthritis is seen. No evidence of avascular necrosis of femoral head. No fractures or dislocations. No suspicious bony lesions. Degenerative disc disease in visualized lower lumbar spine is seen. Soft tissues: Visualized bowel gas pattern is normal. No suspicious soft tissue calcifications. IMPRESSION: No acute pelvic fracture or dislocation. Moderate right worse than left bilateral hip joint osteoarthritis. No evidence of avascular necrosis. Degenerative disc disease in lower lumbar spine. Dictated by: Holland Armstrong M.D. on 03/16/2024 at 16:50 Approved by: Holland Armstrong M.D. on 03/16/2024 at 16:51
[2024-03-16 15:42] LABS: Add Manual Diff / Slide Review NO; Basophils Absolute Auto 0 /uL (0-100); Basophils Percent Auto 0.4 % (0-2); Eosinophils Absolute Auto 0 /uL (0-450); Eosinophils Percent Auto 0.1 % (2-4); Hematocrit 35.2 % (41-53); Lymphocytes Absolute Auto 600 /uL (1100-4500); Lymphocytes Percent Auto 7.3 % (25-40); Mean Corpuscular HGB Conc 34.1 % (30-36); Mean Corpuscular Hemoglobin 33.2 PG (26-34); Mean Corpuscular Volume 97.4 fL (80-100); Monocytes Absolute Auto 600 /uL (0-900); Monocytes Percent Auto 8.1 % (3-14); Neutrophils Absolute Auto 6500 /uL (1500-7000); Neutrophils Percent Auto 84.1 % (50-75); Platelet Count 176 X10^3/uL (150-400); Red Blood Cell Count 3.61 X10^6/uL (4.5-5.9); Red Cell Distribution Width 14.8 % (11.6-14.8); White Blood Cell Count 7.8 X10^3/uL (4.5-11.0)
[2024-03-16 15:53] LABS: INR 1.6 (0.9-1.3)
[2024-03-16 15:56] LABS: PTT Partial Thromboplastin Tim 31 SECONDS (25.1-36.5)
[2024-03-16 16:00] LABS: Alanine Aminotransferase 16 IU/L (<50); Albumin 3.8 g/dL (3.5-5.0); Albumin Globulin Ratio 1.4 (1.0-2.8); Alkaline Phosphatase 80 U/L (38-126); Aspartate Aminotransferase 28 IU/L (17-59); BUN Creatinine Ratio 46.5 (6-22); Bilirubin Total 1.6 mg/dL (0.2-1.3); Blood Urea Nitrogen 20 mg/dL (9-20); Calcium 8.5 mg/dL (8.4-10.2); Carbon Dioxide 27 mmol/L (22-32); Chloride 95 mmol/L (98-107); Creatine Kinase 295 U/L (55-170); Estimated Glomerular Filt Rate > 60 mL/min (>60); Globulin 2.8 g/dL (1.7-4.1); Glucose 140 mg/dL (80-110); HEMOLYSIS 19 (0-50); Lipase 41 U/L (23-300); Magnesium 1.4 mg/dL (1.6-2.3); Potassium 3.3 mmol/L (3.4-5.1); Sodium 128 mmol/L (137-145); Total Protein 6.6 g/dL (6.3-8.2)
--- NOTE | 2024-03-16 19:17 | PM.HP.1 ---
History of Present Illness History of Present Illness Date Patient Seen: 03/16/24 Time Patient Seen: 19:17 Chief complaint: falls, head injury, rapid wt loss Narrative: Pt is 83 yo male with afib on apixaban, hypertension, dyslipidemia, coronary artery disease, systolic CHF, hypomagnesemia, BPH who presents with increasing generalized weakness, recurrent falls, difficulty with ambulation, weight loss on mild mental changes. Pt has had multiple recent falls and hit his head. Head CT showed: Acute intraventricular blood within left lateral ventricle with slightly asymmetrically enlarged left lateral ventricle compared to the right side and up to 3 mm midline shift to the right. Pt was able to voice wishes that he does not want any medical intervention for this bleed. He wants to be kept comfortable. Denies any pain currently. [facility] Medical History Repeated falls Tinea unguium Systolic CHF, chronic Do not resuscitate Mixed hyperlipidemia Essential hypertension Type 2 diabetes mellitus with cardiac complication Chronic anticoagulation Chronic atrial fibrillation Coronary artery disease Lung cancer History of UTI BPH w urinary obs/LUTS HTN (hypertension) Hypercholesteremia GERD (gastroesophageal reflux disease) Diverticular disease CAD (coronary artery disease) Chronic UTI BPH (benign prostatic hyperplasia) B12 deficiency Surgical History Hx of prostate biopsy H/O cystoscopy S/P CABG x 2 Social History household members: none Smoking Status: Former smoker Tobacco: How many years used: 20 alcohol intake: never caffeine: Yes Meds Home Medications and Allergies Home Medications Medication Instructions Recorded Confirmed Type acetaminophen 325 mg capsule 325 mg PO ONCE PRN Pain (Scale 01/24/22 03/16/24 History (Tylenol) Score 1-3) apixaban 5 mg tablet (Eliquis) 5 mg PO BID 01/24/22 03/16/24 History ascorbate calcium (vitamin C) 500 500 mg PO BID 01/24/22 03/16/24 History mg tablet isosorbide mononitrate 30 mg 30 mg PO DAILY 01/24/22 03/16/24 History tablet,extended release 24 hr mecobalamin (vitamin B12) 1,000 1,000 mcg PO DAILY 01/24/22 03/16/24 History mcg chewable tablet potassium chloride 10 mEq 10 meq PO BID 01/22/23 03/16/24 History tablet,extended release omeprazole 20 mg capsule,delayed 60 mg (3 x 20 mg) PO DAILY #270 04/16/23 03/16/24 Rx release caps carvedilol 6.25 mg tablet 6.25 mg PO BID #180 tabs 06/02/23 03/16/24 Rx methenamine hippurate 1 gram tablet See Rx Instructions .Route 08/13/23 03/16/24 Rx .COMPLEX #60 tabs calcium carbonate 260 mg calcium 260 mg PO DAILY 11/05/23 03/16/24 History (648 mg) tablet empagliflozin 10 mg tablet 10 mg PO DAILY 11/05/23 03/16/24 History (Jardiance) magnesium oxide 500 mg PO DAILY 11/05/23 03/16/24 History sacubitril 97 mg-valsartan 103 mg 1 tab PO BID 11/05/23 03/16/24 History tablet (Entresto) spironolactone 25 mg tablet 25 mg PO DAILY #90 tabs 11/28/23 03/16/24 Rx (Aldactone) atorvastatin 40 mg tablet (Lipitor) 40 mg PO DAILY #90 tabs 12/25/23 03/16/24 Rx amlodipine 5 mg tablet 5 mg PO BID 03/16/24 03/16/24 History tamsulosin 0.4 mg capsule 0.4 mg PO BEDTIME 03/16/24 History Allergies Allergy/AdvReac Type Severity Reaction Status Date / Time No Known Drug Allergies Allergy Verified 03/16/24 12:00 Exam Vital Signs (past 8 hours): - 03/16/24 15:03 03/16/24 15:35 03/16/24 15:39 Temperature 98.4 F Pulse Rate 65 69 Respiratory Rate 18 Blood Pressure 127/67 150/82 H Pulse Oximetry 95 Oxygen Delivery Method Room Air 03/16/24 15:39 03/16/24 15:41 03/16/24 15:41 Temperature Pulse Rate 62 61 Respiratory Rate 28 H Blood Pressure 145/81 H Pulse Oximetry 96 95 Oxygen Delivery Method 03/16/24 16:00 03/16/24 16:30 03/16/24 16:31 Temperature Pulse Rate 61 61 Respiratory Rate Blood Pressure 133/79 Pulse Oximetry 96 Oxygen Delivery Method 03/16/24 16:31 03/16/24 17:00 03/16/24 17:00 Temperature Pulse Rate 61 63 Respiratory Rate 26 H 29 H Blood Pressure 138/78 Pulse Oximetry Oxygen Delivery Method 03/16/24 17:30 03/16/24 17:30 03/16/24 18:00 Temperature Pulse Rate 59 L 62 Respiratory Rate 23 23 Blood Pressure 161/77 H Pulse Oximetry Oxygen Delivery Method 03/16/24 18:00 Temperature Pulse Rate Respiratory Rate Blood Pressure 140/73 Pulse Oximetry Oxygen Delivery Method Oxygen Delivery Method Room Air Narrative Exam Narrative: Gen: alert, cooperative HEENT: pupils equal Lungs: clear CV: irregular rhythm Abd: soft Ext: no edema Neuro: oriented to person and place, speech clear, no facial droop, no unilateral weakness Skin: bruising on forehead, back and all four extremities Objective Labs 03/16/24 15:34 03/16/24 15:34 Labs: Laboratory Results - last 24 hr 03/16/24 15:34 WBC 7.8 RBC 3.61 L Hgb 12.0 L Hct 35.2 L MCV 97.4 MCH 33.2 MCHC 34.1 RDW 14.8 Plt Count 176 Neut % (Auto) 84.1 H Lymph % (Auto) 7.3 L [place] % (Auto) 8.1 Eos % (Auto) 0.1 L Baso % (Auto) 0.4 Neut # (Auto) 6500 Lymph # (Auto) 600 L [place] # (Auto) 600 Eos # (Auto) 0 Baso # (Auto) 0 PT 19.0 H INR 1.6 H APTT 31 Sodium 128 L Potassium 3.3 L Chloride 95 L Carbon Dioxide 27 BUN 20 Creatinine 0.43 L Estimated GFR > 60 BUN/Creatinine Ratio 46.5 H Glucose 140 H Calcium 8.5 Magnesium 1.4 L Total Bilirubin 1.6 H AST 28 ALT 16 Alkaline Phosphatase 80 Total Creatine Kinase 295 H Troponin I 0.030 Total Protein 6.6 Albumin 3.8 Globulin 2.8 Albumin/Globulin Ratio 1.4 Lipase 41 Blood Type A Positive Antibody Screen Negative Assessment & Plan Assessment & Plan narrative: 1. Acute subarachnoid hemorrhage 2. Afib on oral anticoagulant 3. HTN 4. CHF, systolic chronic PLAN: admit to observation tylenol prn Surrogate: niece, Maria Isabel Silver DVT prevention: contraindicated with acute bleed and comfort care Code status: DNR Quality VTE Deep Vein Thrombosis/Pulmonary Embolism Present on Admission: No
--- NOTE | 2024-03-17 07:35 | P.PN_ITS ---
Subjective Subjective Interval history: From admission note: Pt is 83 yo male with afib on apixaban, hypertension, dyslipidemia, coronary artery disease, systolic CHF, hypomagnesemia, BPH who presents with increasing generalized weakness, recurrent falls, difficulty with ambulation, weight loss on mild mental changes. Pt has had multiple recent falls and hit his head. Head CT showed: Acute intraventricular blood within left lateral ventricle with slightly asymmetrically enlarged left lateral ventricle compared to the right side and up to 3 mm midline shift to the right. Pt was able to voice wishes that he does not want any medical intervention for this bleed. He wants to be kept comfortable. Denies any pain currently. TODAY: He denies headache, can follow commands, and can move arms and legs. He has no facial droop. His speech is slow and somewhat slurred. Exam Vital Signs (past 8 hours): Oxygen Delivery Method Room Air Oxygen Flow Rate 0 Narrative Exam Narrative: NAD, alert and oriented. Slow to answer questions, slurred but intelligible speech. States he is comfortable. Follows commands. Lungs are clear, normal rate and effort. Heart is regular, no murmur gallop or rub. Abdomen is soft, non distended. Extremities are free of edema. Can move arms and legs. No facial droop. Objective Labs 03/16/24 15:34 03/16/24 15:34 Labs: Laboratory Results - last 24 hr 03/16/24 15:34 WBC 7.8 RBC 3.61 L Hgb 12.0 L Hct 35.2 L MCV 97.4 MCH 33.2 MCHC 34.1 RDW 14.8 Plt Count 176 Neut % (Auto) 84.1 H Lymph % (Auto) 7.3 L Zapata % (Auto) 8.1 Eos % (Auto) 0.1 L Baso % (Auto) 0.4 Neut # (Auto) 6500 Lymph # (Auto) 600 L Zapata # (Auto) 600 Eos # (Auto) 0 Baso # (Auto) 0 PT 19.0 H INR 1.6 H APTT 31 Sodium 128 L Potassium 3.3 L Chloride 95 L Carbon Dioxide 27 BUN 20 Creatinine 0.43 L Estimated GFR > 60 BUN/Creatinine Ratio 46.5 H Glucose 140 H Calcium 8.5 Magnesium 1.4 L Total Bilirubin 1.6 H AST 28 ALT 16 Alkaline Phosphatase 80 Total Creatine Kinase 295 H Troponin I 0.030 Total Protein 6.6 Albumin 3.8 Globulin 2.8 Albumin/Globulin Ratio 1.4 Lipase 41 Blood Type A Positive Antibody Screen Negative [facility] Medical History Repeated falls Tinea unguium Systolic CHF, chronic Do not resuscitate Mixed hyperlipidemia Essential hypertension Type 2 diabetes mellitus with cardiac complication Chronic anticoagulation Chronic atrial fibrillation Coronary artery disease Lung cancer History of UTI BPH w urinary obs/LUTS HTN (hypertension) Hypercholesteremia GERD (gastroesophageal reflux disease) Diverticular disease CAD (coronary artery disease) Chronic UTI BPH (benign prostatic hyperplasia) B12 deficiency Surgical History Hx of prostate biopsy H/O cystoscopy S/P CABG x 2 Social History household members: none Smoking Status: Former smoker Tobacco: How many years used: 20 alcohol intake: never caffeine: Yes Assessment & Plan Assessment & Plan narrative: 1. Acute subarachnoid hemorrhage, present on admission and active. 2. Afib on oral anticoagulant, present on admission and stable. 3. HTN, present on admission and stable. 4. CHF, systolic chronic, present on admission and stable. PLAN: -comfort based care. -tylenol prn -discussed with care team, will investigate options for ongoing care outside the hospital. Changed to IP status, will need a second MN of hospital care. Surrogate: niece, Maria Isabel Silver DVT prevention: contraindicated with acute bleed and comfort care Code status: DNR Quality VTE Deep Vein Thrombosis/Pulmonary Embolism Present on Admission: No
--- NOTE | 2024-03-17 15:32 | CM.DANOTE ---
Initial DCP Assessment Visit Note Reviewed EMR and team rounds for pt's medical status and updates. Went to meet with pt at bedside, however he has been sleeping most of the day. Called his niece and left a message re: family's plan for d/c and coordination needs, requested a return call. Pt resides independently in his own home in [place], his was on hospice care and last December,. His niece, Maria Isabel, is his primary family contact at this time. Payor: Medicare PCP: Dr. Burris Pt is a 83 year-old M brought in to the ED by his niece, who has been staying with him since the beginning of the week. She shared that pt has had several falls even since she arrived to the home this week, and that his weakness has progressed to the point where he can hardly manage walking with his walker. The last fall he hit his head, resulting in a intercranial bleed. He has expressed to Dr. Baptiste, Hospitalist, that he does not want any kind of treatment/intervention for the bleed, and is wanting comfort-focused care moving forward. His code status was changed to DNR today. SOLEDAD will work with pt/family tomorrow on determining a plan for his continued comfort care needs once he is stabilized and cleared for d/c. Will plan to follow closely. Discharge Planning/Care Management CM Discharge Assessment Start: 03/17/24 15:21 Freq: Status: Active Protocol: Document 03/17/24 15:21 DPL (Rec: 03/17/24 15:31 DPL [id number]) Discharge Planning Assessment Assigned Network Announcer SOLEDAD Hernadez Advance Directives? Yes Advance Directives on File No History Provided By Medical Record Has Patient been admitted in last 30 No days? Prior Living Arrangements House Household Members none Comment Pt is , his last December 2023. Type of transporation used prior to Drives own vehicle admit Independent with ADL's Yes Is patient alert and oriented? No: Pt has been sleeping most of the day. Caregiver for Another No DME Already Rented / Owned Elevated Toilet Seat,FWW / Walker Comment He also has his 's power chair. Comment Likely will go home with hospice services, will meet with family to clarify their preferences and needs. Barriers to Discharge No Discharge Plan Home Additional Comment Pending. Review Status In Process Please Provide Date Initial DC 05/01/24 Assessment Was Performed
[2024-03-17 20:00] VITALS: TEMP 36.6
[2024-03-18 08:00] VITALS: TEMP 36.6; O2SAT 90
--- NOTE | 2024-03-18 08:13 | P.PN_ITS ---
Subjective Subjective Interval history: He was doing well, denies headache. Up to the commode. He does note that his legs were not moving as well as normal. Discharge planning is currently being attempted with family members. Exam Vital Signs (past 8 hours): Oxygen Delivery Method Room Air Oxygen Flow Rate 0 Narrative Exam Narrative: NAD, alert and oriented. Fluent speech. Lungs are clear, normal rate and effort. Heart is regular, no murmur gallop or rub. Abdomen is soft, non distended. Extremities are free of edema. Awake, fluent speech. Moving arms symmetrically. Objective Labs 03/16/24 15:34 03/16/24 15:34 [facility] Medical History Repeated falls Tinea unguium Systolic CHF, chronic Do not resuscitate Mixed hyperlipidemia Essential hypertension Type 2 diabetes mellitus with cardiac complication Chronic anticoagulation Chronic atrial fibrillation Coronary artery disease Lung cancer History of UTI BPH w urinary obs/LUTS HTN (hypertension) Hypercholesteremia GERD (gastroesophageal reflux disease) Diverticular disease CAD (coronary artery disease) Chronic UTI BPH (benign prostatic hyperplasia) B12 deficiency Surgical History Hx of prostate biopsy H/O cystoscopy S/P CABG x 2 Social History household members: none Smoking Status: Former smoker Tobacco: How many years used: 20 alcohol intake: never caffeine: Yes Assessment & Plan Assessment & Plan narrative: 1. Acute subarachnoid hemorrhage (and ventricular), present on admission and active. 2. Afib on oral anticoagulant, present on admission and stable. 3. HTN, present on admission and stable. 4. CHF, systolic chronic, present on admission and stable. PLAN: -comfort based care. -tylenol prn -discussed with care team, will investigate options for ongoing care outside the hospital. -repeat CT of the brain to assess progress of bleed and help with discharge planning. Changed to IP status, will need a second MN of hospital care. Quality VTE Deep Vein Thrombosis/Pulmonary Embolism Present on Admission: No
--- NOTE | 2024-03-18 10:20 | DI.CT.S_ITS ---
PROCEDURE: CT HEAD/BRAIN WO CON INDICATIONS: head bleed, check progress TECHNIQUE: Noncontrast 4.5 mm thick angled axial sections acquired from the foramen magnum to the vertex, with coronal and sagittal reformats. For radiation dose reduction, the following was used: automated exposure control, adjustment of mA and/or kV according to patient size. COMPARISON: [facility], MR, MR BRAIN WITHOUT CONTRAST, 04/12/2019, 12:40. [facility], CT, CT HEAD/BRAIN WO CON, 03/16/2024, 15:20. FINDINGS: Image quality: Diagnostic. CSF spaces: Basal cisterns are patent. No extra-axial fluid collections. The ventricles are symmetric in size and shape. Brain: There is again seen intraventricular hemorrhage within the left ventricle. The volume of hemorrhage appears minimally less than on the 03/16/2024 examination. Symmetrically calcified choroid plexus can be seen more posteriorly and inferiorly. No new areas of hemorrhage can be seen. There is 2-3 mm of [id number] midline shift again seen. No intracranial masses. There is cerebral volume loss for age, with resultant ventricular and sulcal prominence. There are periventricular and deep white matter chronic small vessel ischemic changes. There is intracranial internal carotid artery atherosclerosis. Skull and face: Calvarium and visualized facial bones appear intact, without suspicious lesions. Sinuses: Visualized sinuses and mastoids are clear. IMPRESSION: Left ventricular hemorrhage seen, which is overall slightly improved compared to the 03/16/2024 examination. Dictated by: Kale Conrad M.D. on 03/18/2024 at 10:22 Approved by: Kale Conrad M.D. on 03/18/2024 at 10:25
--- NOTE | 2024-03-18 13:37 | CM.DPC ---
DCP Cont. Reviewed EMR and team rounds for status updates. Met jointly with Dr. Baptiste, pt's 2-nieces, and pt to discuss goals of care and next steps for d/c plan. Pt had expressed not wanting any further active tx, and wants comfort-focused care moving forward. Discussed hospice services and what to expect with care in the home, pt's was on hospice and she just in 2023, so pt is aware of what to expect. CASH PERSON provided his nieces with in-home cg resources in order to hire 24/7 caregivers in the home. Faxed referral and clinicals to [facility], they are reviewing. Will continue to monitor for pt to have everything in place in the home and ready for hospice within the next 1-2 days, will need cabulance for transport, unless that changes in the next few days.
[2024-03-18] MEDS: MORPHINE 2 MG/ML INJ IV ×2 (16:27→20:31)
[2024-03-18 20:30] VITALS: BP 131/86; PULSE 67; RESP 20; TEMP 36; O2SAT 94
[2024-03-19] MEDS: MORPHINE 2 MG/ML INJ IV (04:39)
[2024-03-19 08:00] VITALS: BP 146/89; PULSE 70; RESP 16; TEMP 36.3; O2SAT 97
[2024-03-19 09:39] VITALS: O2SAT 98
--- NOTE | 2024-03-19 10:20 | PM.PN.1 ---
Subjective Subjective Date Patient Seen: 03/19/24 Time Patient Seen: 07:30 Interval history: The patient is awake, appropriate and understands the plan of care for him to return home with hospice and assistance of his nieces Maria Isabel and Litzy. He understands his prognosis is poor and wishes to return home for comfort care measures. Care reviewed with the care team and anticipate discharge home tomorrow. Follow-up head CT yesterday reports: Left ventricular hemorrhage seen, which is overall slightly improved compared to the 03/16/2024 examination. Exam Vital Signs (past 8 hours): - 03/19/24 08:00 03/19/24 09:39 Temperature 97.3 F L Pulse Rate 70 Respiratory Rate 16 Blood Pressure 146/89 H Pulse Oximetry 97 98 Oxygen Delivery Method Nasal Cannula Oxygen Flow Rate 3 3 Oxygen Delivery Method Nasal Cannula Oxygen Flow Rate 3 Narrative Exam Narrative: GENERAL: This is a frail, weak appearing male, alert, appears fatigued, otherwise in no apparent distress. HEAD: Atraumatic. Normocephalic. No temporal or scalp tenderness. EYES: Pupils equal round and reactive. Extraocular motions intact. No scleral icterus. No injection or drainage. ENT: Mucous membranes pink and moist. NECK: Trachea midline. No JVD, bruits or lymphadenopathy. Supple, nontender, no meningeal signs. CARDIOVASCULAR: Regular rate and rhythm without murmurs, gallops, or rubs. RESPIRATORY: Clear to auscultation. GASTROINTESTINAL: Abdomen soft, non-tender, nondistended. EXTREMITIES: No clubbing, cyanosis, or edema. BACK: Nontender without deformity or crepitance. No flank tenderness. NEUROLOGIC: Alert, oriented, speech fluent, globally weak upper and lower motor strength, no focal deficits evident. DERMATOLOGIC: No rashes or skin lesions. Objective Labs 03/16/24 15:34 03/16/24 15:34 [facility] Medical History Repeated falls Tinea unguium Systolic CHF, chronic Do not resuscitate Mixed hyperlipidemia Essential hypertension Type 2 diabetes mellitus with cardiac complication Chronic anticoagulation Chronic atrial fibrillation Coronary artery disease Lung cancer History of UTI BPH w urinary obs/LUTS HTN (hypertension) Hypercholesteremia GERD (gastroesophageal reflux disease) Diverticular disease CAD (coronary artery disease) Chronic UTI BPH (benign prostatic hyperplasia) B12 deficiency Surgical History Hx of prostate biopsy H/O cystoscopy S/P CABG x 2 Social History household members: none Smoking Status: Former smoker Tobacco: How many years used: 20 alcohol intake: never caffeine: Yes Assessment & Plan Assessment & Plan narrative: 1. Acute subarachnoid hemorrhage (and ventricular), present on admission and active. 2. Afib on oral anticoagulant, present on admission and stable. 3. HTN, present on admission and stable. 4. CHF, systolic chronic, present on admission and stable. PLAN: -comfort based care. -tylenol prn -discussed with care team, plan to return home with hospice and home caregivers with family tomorrow Quality VTE Deep Vein Thrombosis/Pulmonary Embolism Present on Admission: No MIPS - Admit I confirm the patient?s Advance Care Plan is present, Code status is documented, Surrogate decision maker is in patient?s record [If Yes, STOP here]: Yes MIPS - Meds 'Current medications' to include all prescriptions, kulx-nym-zybkgeh products, herbals, cannabis/cannabidiol products, and vitamin/mineral/dietary (nutritional) supplements. I have utilized all available resources to obtain, update, or review the patient?s current medications. [If Yes, STOP here]: Yes MIPS - DC Patient not prescribed/taking JUAN J or ARB for medical/patient reason(s) including (ex: allergy, intolerance, contraindication).: Hospice care [facility] Charge codes Subsequent inpatient/observation care: 55543 Lab Results Common Lab Results- Last: White Blood Count 7.8 X10^3/uL (4.5-11.0) 03/16/24 Red Blood Count 3.61 X10^6/uL (4.5-5.9) L 03/16/24 Hemoglobin 12.0 g/dL (13.5-17.5) L 03/16/24 Hematocrit 35.2 % (41-53) L 03/16/24 Mean Corpuscular Volume 97.4 fL (80-100) 03/16/24 Mean Corpuscular Hemoglobin 33.2 PG (26-34) 03/16/24 Mean Corpuscular Hemoglobin Concent 34.1 % (30-36) 03/16/24 Red Cell Distribution Width 14.8 % (11.6-14.8) 03/16/24 Platelet Count 176 X10^3/uL (150-400) 03/16/24 Neutrophils (%) (Auto) 84.1 % (50-75) H 03/16/24 Lymphocytes (%) (Auto) 7.3 % (25-40) L 03/16/24 Monocytes (%) (Auto) 8.1 % (3-14) 03/16/24 Eosinophils (%) (Auto) 0.1 % (2-4) L 03/16/24 Basophils (%) (Auto) 0.4 % (0-2) 03/16/24 Neutrophils # (Auto) 6500 /uL (6469-3352) 03/16/24 Sodium Level 128 mmol/L (137-145) L 03/16/24 Potassium Level 3.3 mmol/L (3.4-5.1) L 03/16/24 Chloride Level 95 mmol/L (98-107) L 03/16/24 Carbon Dioxide Level 27 mmol/L (22-32) 03/16/24 Blood Urea Nitrogen 20 mg/dL (9-20) 03/16/24 Creatinine 0.43 mg/dL (0.66-1.25) L 03/16/24 Estimat Glomerular Filtration Rate > 60 mL/min (>60) 03/16/24 BUN/Creatinine Ratio 46.5 (6-22) H 03/16/24 Glucose Level 140 mg/dL (80-110) H 03/16/24 Calcium Level 8.5 mg/dL (8.4-10.2) 03/16/24 Total Bilirubin 1.6 mg/dL (0.2-1.3) H 03/16/24 Aspartate Amino Transf (AST/SGOT) 28 IU/L (17-59) 03/16/24 Alanine Aminotransferase (ALT/SGPT) 16 IU/L (<50) 03/16/24 Alkaline Phosphatase 80 U/L (38-126) 03/16/24 Total Protein 6.6 g/dL (6.3-8.2) 03/16/24 Albumin 3.8 g/dL (3.5-5.0) 03/16/24 Globulin 2.8 g/dL (1.7-4.1) 03/16/24 Albumin/Globulin Ratio 1.4 (1.0-2.8) 03/16/24 Triglycerides Level 108 mg/dL (35-150) 04/04/22 Cholesterol Level 131 mg/dL (140-199) L 04/04/22 HDL Cholesterol 30 mg/dL (40-60) L 04/04/22 LDL Cholesterol, Calculated 79 mg/dL (<100) 04/04/22 Thyroid Stimulating Hormone (TSH) 4.33 uIU/mL (0.47-4.68) 04/04/22 Alanine Aminotransferase (ALT/SGPT) 16 IU/L (<50) 03/16/24 Hemoglobin A1c 6.0 % (4.0-6.0) 07/30/23 Aspartate Amino Transf (AST/SGOT) 28 IU/L (17-59) 03/16/24 Blood Urea Nitrogen 20 mg/dL (9-20) 03/16/24 Creatinine 0.43 mg/dL (0.66-1.25) L 03/16/24 Estimat Glomerular Filtration Rate > 60 mL/min (>60) 03/16/24 BUN/Creatinine Ratio 46.5 (6-22) H 03/16/24 Cholesterol Level 131 mg/dL (140-199) L 04/04/22 Hemoglobin 12.0 g/dL (13.5-17.5) L 03/16/24 Red Blood Count 3.61 X10^6/uL (4.5-5.9) L 03/16/24 Hematocrit 35.2 % (41-53) L 03/16/24 Lipase 41 U/L (23-300) 03/16/24 Urine Random Microalbumin 11.4 mg/dL (0-1.6) H 07/30/23 Urine Creatinine 101.9 mg/dL 07/30/23 Urine Microalbumin/Creatinine Ratio 111.8 ug/mg CR (<30) H 07/30/23 Platelet Count 176 X10^3/uL (150-400) 03/16/24 Prothrombin Time 19.0 SECONDS (9.4-12.5) H 03/16/24 Prothromb Time International Ratio 1.6 (0.9-1.3) H 03/16/24 Vitamin B12 Level 573 pg/mL (239-931) 07/18/22
--- NOTE | 2024-03-19 12:57 | CM.DPC ---
DCP Cont. Reviewed EMR and team rounds for status updates. Spoke to [facility], they are delivering DME tomorrow, and are holding a spot for him to be admitted on Friday. Called and spoke to Maria Isabel, pt's niece. She called a cg agency and obtained information, however, the family has decided amongst themselves that they are going to all take care of him in the home together, and that if they feel that they need to hire additional care, that they know that they can call back the cg agency and move forward with an assessment visit in order to start care. Plan is to speak with Maria Isabel and Hospice again tomorrow am in order to clarify what time equipment is being delivered so that we can arrange for discharge here in the hospital. Will update RN of plan.
[2024-03-19 19:30] VITALS: BP 137/73; PULSE 78; RESP 24; TEMP 36.6; O2SAT 97
[2024-03-19 20:38] VITALS: PULSE 83; O2SAT 95
[2024-03-20 07:00] VITALS: O2SAT 97
[2024-03-20 08:00] VITALS: BP 140/86; PULSE 78; RESP 16; TEMP 36.6; O2SAT 97
[2024-03-20] MEDS: SODIUM CHLORIDE 0.9% FLUSH 10 ML IV (09:45)
--- NOTE | 2024-03-20 09:59 | PC.NURSE ---
Day shift: @ 0945 pt was working w/ PT, spouse, [place], present in room. Per PT, PT and [employer] walked w/ pt a few steps and pt became hypotensive, diaphoretic and lightheaded. PT and [employer] immediately checked BPs while standin/39 (79), rechecked: 80/41 (54). PT and [employer] had pt supine in recliner, rechecked BP: 139/72 (79). Pt compensated quickly. This RN was called into room and immediately hooked pt back up to fluids and rechecked BPs. After 5 mins supine, reclined pt to sitting position and rechecked BP: 107/64 (80). PT stated pt was in the low 100s systolically at baseline. Pt stated improvement and PT stated another eval this afternoon. Will continue to monitor pt at this time.
--- NOTE | 2024-03-20 10:32 | P.DS_ITS ---
History of Present Illness History of Present Illness Chief complaint: falls, head injury, rapid wt loss Narrative: Pt is 83 yo male with afib on apixaban, hypertension, dyslipidemia, coronary artery disease, systolic CHF, hypomagnesemia, BPH who presents with increasing generalized weakness, recurrent falls, difficulty with ambulation, weight loss on mild mental changes. Pt has had multiple recent falls and hit his head. Head CT showed: Acute intraventricular blood within left lateral ventricle with slightly asymmetrically enlarged left lateral ventricle compared to the right side and up to 3 mm midline shift to the right. Pt was able to voice wishes that he does not want any medical intervention for this bleed. He wants to be kept comfortable. Denies any pain currently. Discharge Providers Provider Date of admission: 03/16/24 17:37 Discharge Date: 03/20/24 Primary care physician: Luis Burris MD Consults: 03/16/24 19:29 Consult to Discharge Planning Routine Comment: Discharge provider: Srikanth Orourke DO Summary Hospital Course Discharge Diagnosis: 1. Acute subarachnoid hemorrhage (and ventricular), present on admission and active. 2. Afib on oral anticoagulant, present on admission and stable. 3. HTN, present on admission and stable. 4. CHF, systolic chronic, present on admission and stable. Hospital Course: Admitted for falls on eliquis resulting in acute head bleed. Patient asked to be kept comfortabale and did not want any interventions. He was placed on comfort care then discharged home on hospice. Exam Vital Signs (past 8 hours): - 03/20/24 07:00 03/20/24 08:00 Temperature 97.8 F Pulse Rate 78 Respiratory Rate 16 Blood Pressure 140/86 Pulse Oximetry 97 97 Oxygen Delivery Method Nasal Cannula Oxygen Flow Rate 3 3 Fraction of Inspired Oxygen 32 SaO2/FiO2 Ratio 296 Oxygen Delivery Method Nasal Cannula Oxygen Flow Rate 3 Narrative Exam Narrative: GENERAL: This is a frail, weak appearing male, alert, appears fatigued, otherwise in no apparent distress. HEAD: Atraumatic. Normocephalic. No temporal or scalp tenderness. EYES: Pupils equal round and reactive. Extraocular motions intact. No scleral icterus. No injection or drainage. ENT: Mucous membranes pink and moist. NECK: Trachea midline. No JVD, bruits or lymphadenopathy. Supple, nontender, no meningeal signs. CARDIOVASCULAR: Regular rate and rhythm without murmurs, gallops, or rubs. RESPIRATORY: Clear to auscultation. GASTROINTESTINAL: Abdomen soft, non-tender, nondistended. EXTREMITIES: No clubbing, cyanosis, or edema. BACK: Nontender without deformity or crepitance. No flank tenderness. NEUROLOGIC: Alert, oriented, speech fluent, globally weak upper and lower motor strength, no focal deficits evident. DERMATOLOGIC: No rashes or skin lesions. Objective Labs 03/16/24 15:34 03/16/24 15:34 [facility] Medical History Repeated falls Tinea unguium Systolic CHF, chronic Do not resuscitate Mixed hyperlipidemia Essential hypertension Type 2 diabetes mellitus with cardiac complication Chronic anticoagulation Chronic atrial fibrillation Coronary artery disease Lung cancer History of UTI BPH w urinary obs/LUTS HTN (hypertension) Hypercholesteremia GERD (gastroesophageal reflux disease) Diverticular disease CAD (coronary artery disease) Chronic UTI BPH (benign prostatic hyperplasia) B12 deficiency Surgical History Hx of prostate biopsy H/O cystoscopy S/P CABG x 2 Social History household members: none Smoking Status: Former smoker Tobacco: How many years used: 20 alcohol intake: never caffeine: Yes Discharge Plan Discharge Plan Patient Disposition: Hospice - Home Discharge orders & Medications Prescriptions: Continued tamsulosin 0.4 mg capsule 0.4 mg PO BEDTIME acetaminophen [Tylenol] 325 mg capsule 325 mg PO ONCE PRN (Reason: Pain (Scale Score 1-3)) Discontinued carvedilol 6.25 mg tablet 6.25 mg PO BID Qty: 180 3RF methenamine hippurate 1 gram tablet See Rx Instructions .ROUTE .COMPLEX Qty: 60 3RF Dose Instruction: TAKE 1 TABLET TWICE A DAY WITH VITAMIN C 500 MG. (NEED APPOINTMENT PRIOR TO FURTHER REFILLS, NO FURTHER REFILLS UNTIL SEEN) Rx Instructions: TAKE 1 TABLET TWICE A DAY WITH VITAMIN C 500 MG. (Refills may be readily obtained through his PCP) spironolactone [Aldactone] 25 mg tablet 25 mg PO DAILY Qty: 90 3RF atorvastatin [Lipitor] 40 mg tablet 40 mg PO DAILY Qty: 90 3RF potassium chloride 10 mEq tablet extended release 10 meq PO BID magnesium oxide 500 mg tablet 500 mg PO DAILY Patient Comments: unable start because was unavailable amlodipine 5 mg tablet 5 mg PO BID Jardiance 10 mg tablet 10 mg PO DAILY Entresto 97-103 mg tablet 1 tab PO BID furosemide 20 mg tablet 20 mg PO BID Eliquis 5 mg tablet 5 mg PO BID ascorbate calcium (vitamin C) 500 mg tablet 500 mg PO BID isosorbide mononitrate 30 mg tablet extended release 24 hr 30 mg PO DAILY Follow up/Referrals: Luis Burris MD [Primary Care Provider] - 2 Weeks Visit Report/Discharge Packet Stand Alone Forms: Patient Portal/API, Stroke Signs & Symptoms Discharge Data Primary Care Provider: Luis Burris V Quality VTE Deep Vein Thrombosis/Pulmonary Embolism Present on Admission: No
--- NOTE | 2024-03-20 10:56 | CM.DPC ---
DCP Cont. Reviewed EMR and team rounds for status updates. Pt has been resting comfortably today, no new updates. Monitoring for his assessment from [facility] on Friday when they explain his assessment and move forward with calculating his daily rate for placement.
--- NOTE | 2024-03-20 10:58 | CM.DPC ---
DCP Cont. Reviewed EMR and team rounds for status updates. Plan is for pt to d/c home today w/[facility] opening services on Friday, family will provide for his caregiving, DME and O2 will be delivered today by 2:30pm. POLST is completed and with the d/c folder, BLS will transport today at 3:00pm, the form is with the red folder. Will update family of d/c time. No further DCP needs identified at this time.
== END 2024-03-20 15:45 | disposition hospice, home (50) | DRG 82 ==
LOC: ED 16:30 → AC 19:21
PROVIDERS: Admitting Provider Internal Medicine; Emergency Provider Emergency Medicine; PCP Internal Medicine; Referring Provider Emergency Medicine; Visit Provider Internal Medicine
DX: S06.6XAA Traumatic subarachnoid hemorrhage with loss of consciousness status unknown, initial encounter (principal); S06.A0XA Traumatic brain compression without herniation, initial encounter; I50.22 Chronic systolic (congestive) heart failure; I11.0 Hypertensive heart disease with heart failure; R29.6 Repeated falls; I48.91 Unspecified atrial fibrillation; S00.03XA Contusion of scalp, initial encounter; I25.10 Atherosclerotic heart disease of native coronary artery without angina pectoris; E78.2 Mixed hyperlipidemia; E11.9 Type 2 diabetes mellitus without complications; N40.0 Benign prostatic hyperplasia without lower urinary tract symptoms; W19.XXXA Unspecified fall, initial encounter; Z66 Do not resuscitate; Z79.84 Long term (current) use of oral hypoglycemic drugs; Z79.01 Long term (current) use of anticoagulants; Z51.5 Encounter for palliative care; Z87.891 Personal history of nicotine dependence
CPT/HCPCS: 36415; 70450; 71045; 72125; 72170; 80053; 82550; 83690; 83735; 84484; 85025; 85610; 85730; 86850; 86900; 86901; 93005; 94760; 99233; 99284; 99285; J2270